=== PATIENT | female | born 1995 | race Caucasian/White ===

== ENCOUNTER 2016-06-01 19:40 | Observation (INO) | payer OTHER ==
[~2016-06-01] VITALS: Ht 152.4 cm; Wt 58.7 kg
[~2016-06-01 19:40] MED LIST: ACET500C5 PO; ONDA4TAB8 PO; OSLT75C PO; OXYM15SP34 NASAL; UDROBDM PO
[2016-06-01 19:44] VITALS: Ht 152.4 cm; Wt 58.7 kg
[2016-06-01] MEDS ORDERED: SOD CHLORIDE 0.9% 500 ML IV STA (21:57)
[2016-06-01 22:11] LABS: ADD SCAN DIFF NO
[2016-06-01 22:12] LABS: BASOPHILS % 0.2 % (0.0-2.0); EOSINOPHILS # 0.1 10^3/ul (0.0-0.5); EOSINOPHILS % 1.1 % (0.0-7.0); HEMATOCRIT 43.5 % (37.0-47.0); HEMOGLOBIN 14.7 g/dl (12.0-16.0); LYMPHOCYTES # 3.2 10^3/ul (0.8-2.9); LYMPHOCYTES % 32.7 % (15.0-51.0); MEAN CORPUSCULAR HEMOGLOBIN 28.3 pg (29.0-33.0); MEAN CORPUSCULAR HGB CONC 33.8 g/dl (32.0-37.0); MEAN CORPUSCULAR VOLUME 83.7 fl (82.0-101.0); MEAN PLATELET VOLUME 9.9 fl (7.4-10.4); MONOCYTE # 0.6 10^3/ul (0.3-0.9); MONOCYTES % 5.8 % (0.0-11.0); NEUTROPHIL # 5.9 10^3/ul (1.6-7.5); PLATELET COUNT 333 10^3/UL (140-415); RED CELL DISTRIBUTION WIDTH 13.2 % (11.5-14.5); WHITE BLOOD COUNT 9.9 10^3/ul (4.8-10.8)
[2016-06-01 22:23] LABS: INR 0.96; PROTIME 12.8 Sec (12.2-14.2)
[2016-06-01 22:24] LABS: PARTIAL THROMBOPLASTIN TIME 34.4 Sec (25.0-35.0)
[2016-06-01 22:26] LABS: ALANINE AMINOTRANSFERASE 31 IU/L (13-69); ALBUMIN 4.7 g/dl (3.3-4.9); ALBUMIN/GLOBULIN RATIO 1.46; ALKALINE PHOSPHATASE 96 IU/L (42-121); ANION GAP 14 (8-16); ASPARTATE AMINO TRANSFERASE 25 IU/L (15-46); BILIRUBIN,INDIRECT 1.1 mg/dl (0-1.1); BILIRUBIN,TOTAL 1.1 mg/dl (0.2-1.3); BLOOD UREA NITROGEN 21 mg/dl (7-20); CALCIUM 9.4 mg/dl (8.4-10.2); CARBON DIOXIDE 25 mmol/L (21-31); CHLORIDE 103 mmol/L (97-110); CREATININE 0.65 mg/dl (0.44-1.00); GLUCOSE 84 mg/dl (70-220); POTASSIUM 3.7 mmol/L (3.5-5.1); SODIUM 138 mmol/L (135-144); TOTAL PROTEIN 7.9 g/dl (6.1-8.1)
[2016-06-01 22:34] LABS: URINE BLOOD (Dip) POC Negative (NEGATIVE)
[2016-06-01 22:38] LABS: B-TYPE NATRIURETIC PEPTIDE 18 PG/ML (0-125)
[2016-06-01 22:40] LABS: TROPONIN-I < 0.012 ng/ml (0.00-0.12)
[2016-06-01 22:45] LABS: ADD UMIC YES; URINE BILIRUBIN (Dip) NEGATIVE (NEGATIVE); URINE BLOOD (Dip) NEGATIVE (NEGATIVE); URINE COLOR LT. YELLOW (YELLOW); URINE GLUCOSE (Dip) NEGATIVE (NEGATIVE); URINE KETONES (Dip) NEGATIVE (NEGATIVE); URINE LEUKOCYTE ESTERASE (Dip) 1+ (NEGATIVE); URINE NITRITE (Dip) NEGATIVE (NEGATIVE); URINE TOTAL PROTEIN (Dip) NEGATIVE (NEGATIVE); URINE UROBILINOGEN (Dip) 0.2 E.U./dL (0.1-1.0)
--- NOTE | 2016-06-01 22:46 | RADRPT ---
PROCEDURE: XR Chest. CLINICAL INDICATION: Chest Pain. TECHNIQUE: Single frontal view of the chest was obtained. COMPARISON: 01/08/2015 FINDINGS: The cardiomediastinal silhouette is normal size. Pulmonary vasculature is within normal limits. Th e lungs are clear. No signs of pleural fluid or pneumothorax are seen. The osseous structures and soft tissues are unre markable. IMPRESSION: No evidence for active cardiopulmonary disease. RPTAT: HBST .Khoi Downing MD, MD Date Time Electronically viewed and signed by .Khoi Downign MD, on 06/01/2016 22:45 .T/
[2016-06-01 23:09] LABS: BACTERIA,URINE FEW; SQUAMOUS EPITHELIAL CELL,UR MODERATE; URINE RBCS NONE SEEN /HPF (0)
--- NOTE | 2016-06-01 23:22 | RADRPT ---
PROCEDURE: CT brain without contrast CLINICAL INDICATION: Dizziness TECHNIQUE: A CT of the brain was performed utilizing axial sections from the skull base through th e vertex without contrast. Sagittal and coronal images were also reformatted. The exam CDTIvol = 4 5.01 mGy and DLP = 720.23 mGy-cm. COMPARISON: None available FINDINGS: No acute intracranial hemorrhage is identified. There is no mass effect or midline shift. No extra -axial fluid collection is seen. The ventricles and sulci are within normal limits for size and con figuration. The density of the brain is within normal limits. Leon-white differentiation is preser cierra. The osseous structures are unremarkable. The mastoid air cells and visualized paranasal sinuses are clear. RPTAT:HJJR IMPRESSION: Unremarkable noncontrast CT of the brain. Physician Anais Date Time Electronically viewed and signed by Physician Anais on 06/01/2016 23:22 /
[2016-06-02] MEDS ORDERED: NACL 0.9% 3 ML SYG IV SCH (00:30)
[2016-06-02] MEDS ORDERED: DOCUSATE SODIUM 100 MG CAP PO PRN (00:30)
[2016-06-02 01:41] LABS: D-DIMER < 220.00 ng/ml (<460)
[2016-06-02] MEDS: FAMOTIDINE 20 MG TAB PO SCH ×3 (03:24→20:23)
[2016-06-02] MEDS ORDERED: MECLIZINE 12.5 MG TAB PO ONE (04:00)
[2016-06-02] MEDS ORDERED: POTASSIUM CHLORIDE (SR) 20 MEQ TAB PO STA (10:10)
[2016-06-02] MEDS ORDERED: MECLIZINE 25 MG TAB PO PRN (11:00)
[2016-06-02] MEDS ORDERED: SOD CHLORIDE 0.9% 500 ML IV ONE (11:00)
[2016-06-02] MEDS ORDERED: ONDANSETRON 4 MG INJ IV PRN (11:00)
[2016-06-02 11:16] LABS: CALCIUM 8.6 mg/dl (8.4-10.2); CREATINE KINASE 32 IU/L (23-200); CREATININE 0.65 mg/dl (0.44-1.00); MAGNESIUM 1.9 mg/dl (1.7-2.5); PHOSPHORUS 3.3 mg/dl (2.5-4.9); POTASSIUM 3.8 mmol/L (3.5-5.1)
[2016-06-02 11:37] LABS: CK-MB < 0.22 ng/ml (0.0-2.4); TROPONIN-I < 0.012 ng/ml (0.00-0.12)
[2016-06-02] MEDS: SOD CHLORIDE 0.9% 1,000 ML IV SCH ×3 (11:47→22:09)
--- NOTE | 2016-06-02 11:55 | HP ---
DATE OF ADMISSION: 06/01/2016 CHIEF COMPLAINT ON ADMISSION: Dizziness and syncope. 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 Her last MRI was a year ago, however, also history of "heart defect," she is not sure what type, but she was als o followed by cardiology as an outpatient, who presented to the emergency department with complaint of 4 episodes of syncope 2 days ago. The patient reports that she did have occasional dizziness dur ing her childhood which were usually monitored or worked up at the [facility] in [place] . However, these episodes she has been having for the past week. She has been having dizziness ove r the past week. No nausea or vomiting. She does have vertiginous sensation. Her gait has been ok ay; however, she feels extremely weak all 4 extremities. 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 She prese nted yesterday in the ER after having 4 episodes of syncope according to the patient the day before. She just feels dizzy. She denies any palpitations, but does have shortness of breath ongoing at [facility]. She had a D-dimer which was negative in the emergency department. Cardiac enz ymes are negative. EKG: Sinus rhythm so far. A 2D echocardiogram with bubble study is pending wit h a cardiology evaluation. I will also obtain MRI and MRA of the brain. With a negative D-dimer, I will discuss if we really need to do a CT angiogram; that would be a last resort due to the rest of the symptoms if we do not have any plausible etiology. The patient is agreeable with the plan. Sh e not orthostatic based on vital signs, but she does feel dizzy even when lying down. She remains h emodynamically stable. ALLERGIES: MULTIPLE ALLERGIES INCLUDING 1. METRONIDAZOLE. 2. CIPROFLOXACIN. 3. KETOROLAC. PAST MEDICAL HISTORY: 1. History of brain cyst. She said that she was told it is a "friendly cyst." 2. History of heart defect, but she does not know exactly which type. She reports that her mom александр d her she was born with it and she had been seeing cardiology as an outpatient during her childhood. PAST SURGICAL HISTORY: Status post appendectomy 3 years ago. GYNECOLOGIC HISTORY: She had 1 last year with multiple admissions due to vaginal bleeding throughout the . It seems to have been a difficult one, but the baby was born healthy and she has not had any complications since then. SOCIAL HISTORY: The patient lives with family. She denies any alcohol, tobacco or drug use. No m arijuana use either. OUTPATIENT MEDICATIONS: None. PHYSICAL EXAMINATION: VITAL SIGNS: Temperature is 98.7, heart rate of 73, sinus rhythm, respiratory rate of 16, blood pre ssure 121/88. Her orthostatics again were negative. GENERAL: She is alert and oriented x4. She is in no acute distress, but seems lethargic even speak ing. She is so short of breath and when her saturations are checked, she is around 88%. HEENT: Pupils are equally round and reactive to light. Extraocular muscles are intact. Anicteric sclerae. NECK: No JVD, no thyromegaly noted. HEART: Regular rate and rhythm. No murmur, rubs, or gallops. LUNGS: Clear to auscultation bilaterally. EXTREMITIES: No edema, clubbing or cyanosis. NEUROLOGIC: The patient does have generalized weakness, 4+/5 throughout. Cranial nerves are intact . Sensation is intact. Gait seems to be intact. LABORATORY DATA: White blood cell count 9.9, hemoglobin 14.7, hematocrit 43.5, platelet count of 33 3. Normal differential on the white blood cell count. Chemistry: Sodium of 138, potassium 3.7, ch loride 103, bicarbonate 25, BUN 21, creatinine 0.65. Hemoglobin A1c 5.0. Glucose of 84, calcium 9 .4. Total bilirubin 1.1, AST 25, ALT 31. Troponin less than 0.012. Alkaline phosphatase of 96, to lang protein 7.9, albumin of 4.7. INR 0.96, PTT 34.4, PT 12.8. D-dimer is less than 220. Urinalysi s is grossly mostly negative. Urine tox screen is pending. A 2D echocardiogram pending. TSH, free T4 pending. Second cardiac enzymes still pending. RADIOLOGICAL DATA: 1. Chest x-ray shows no cardiomegaly, and pulmonary vasculature within normal limits. 2. CAT scan of the brain does not show any acute findings at all or any chronic findings. ASSESSMENT AND PLAN: This is a 21-year-old female with: 1. Dizziness and multiple episodes of syncope with reported "brain cyst" and also reported "heart d efect." We do not have any documentation per se. Therefore, workup is in progress. Echocardiogram with bubble study is ordered. Cardiac enzymes are being evaluated and cardiology consult is placed with Dr. Johnson at this point. We will also obtain an MRI and MRA of the brain based on her histor y and also carotid Dopplers. She is currently stable on telemetry. Additional workup including TSH , free T4 are also pending. 2. Prophylaxis: Pepcid for gastrointestinal prophylaxis. Sequential compression devices to lower extremities for deep venous thrombosis prophylaxis. DISPOSITION Cardiac and neurological workup pending. We will discuss further plan of care with edilia ronquillo. Dictated By: IJEOMA NUNN/CATHERINE Conf#: [id number] DID#: [id number]
[2016-06-02 13:33] LABS: BARBITURATES NEGATIVE (NEGATIVE); BENZODIAZEPINES NEGATIVE (NEGATIVE); CANNABINOIDS NEGATIVE (NEGATIVE); COCAINE NEGATIVE (NEGATIVE); OPIATES NEGATIVE (NEGATIVE)
[2016-06-02 17:30] VITALS: TEMP 98.8
[2016-06-02 18:25] VITALS: BP 110/70; PULSE 71; RESP 18
[2016-06-02 20:00] VITALS: BP_SYST 107; BP_SYST 108; BP_SYST 112; BP_DIAS 73; BP_DIAS 76; RESP 20
[2016-06-02] MEDS: ACETAMINOPHEN 325 MG TAB PO PRN (20:23)
[2016-06-02 21:09] VITALS: PULSE 84
[2016-06-03] VITALS (13 sets, daily range): BP systolic 100–116; BP diastolic 56–75; PULSE 63–86; RESP 18–20
--- NOTE | 2016-06-03 08:12 | RADRPT ---
Echocardiogram Report Patient Name: LYRIC CARTER Gender: Female Date: 1995 Study Date: 02-Jun-2016 Team Foreman: Francia Denis RDCS Location: 2 Ref. Physician: EVELIN REYES Quality: Good Procedures: Transthoracic echocardiogram with complete 2D, M-Mode, and doppler examination. Indications: Syncope. 2D/M Mode Doppler Measurement Value Normal Ranges Measurement Value Normal Ranges LVIDd 2D 4.2 3.5 - 5.6 cm AV Peak Nathanael 1.5 m/sec LVIDs 2D 2.4 2.1 - 4.1 cm AV Peak PG 9.0 mmHg FS 2D 42.9 % LVOT Peak Nathanael 1.2 m/sec LVPWd 2D 0.7 0.6 - 1.1 cm LVOT Peak PG 6.0 mmHg IVSd 2D 0.6 0.6 - 1.1 cm MV E Peak Nathanael 1.2 m/sec IVS/LVPW 2D 0.9 MV A Peak Nathanael 0.6 m/sec AoR Diam 2D 2.1 2.0 - 3.7 cm MV E/A 2.0 LA/Ao 2D 1 0 - 1 MV Decel Time 148 msec EDV 2D 74.1 cm3 MV E/A 2.0 ESV 2D 13.8 cm3 TR Peak Nathanael 2.0 m/sec LA Dimen 2D 2.6 2.3 - 4.0 cm TR Peak PG 16.0 mmHg RVSP 19.0 mmHg Findings Left Ventricle: Normal left ventricular systolic function. Normal left ventricular cavity size. Normal left ventricular wall thickness. Ejection fraction is visually estimated at 65 %. Tissue Doppler/Mitral Doppler indices are within normal limits. Right Ventricle: Normal right ventricular size. Normal right ventricular systolic function. Left Atrium: The left atrium is normal in size. Right Atrium: The right atrium is normal in size. Atrial Septum: Bubble study was performed with and with out valsalva indicating no evidence of intra atrial shunt. Mitral Valve: Mitral valve leaflets appear mildly thickened. Mild mitral annular calcification. Trace mitral regurgitation. Aortic Valve: Normal appearance of the aortic valve. No significant aortic stenosis or insufficiency. Tricuspid Valve: Normal appearance and function of the tricuspid valve with trace physiologic regurgitation. Normal right ventricular systolic pressure. Estimated peak PA systolic pressure 19 mmHg. Pulmonic Valve: Normal pulmonic valve appearance. There is trace pulmonic regurgitation. Pericardium: Normal pericardium with no significant pericardial effusion. Aorta: Normal aortic root. IVC: Normal size and normal respiratory collapse consistent with normal right atrial pressure. Conclusions 1.Normal left ventricular systolic function. Normal left ventricular cavity size. Normal left ventricular wall thickness. Ejection fraction is visually estimated at 65 %. Tissue Doppler/Mitral Doppler indices are within normal limits. 2.Normal right ventricular size. Normal right ventricular systolic function. 3.The left atrium is normal in size. 4.The right atrium is normal in size. 5.Normal appearance and function of the tricuspid valve with trace physiologic regurgitation. Normal right ventricular systolic pressure. Estimated peak PA systolic pressure 19 mmHg. 6.Normal pericardium with no significant pericardial effusion. Electronically Signed By: Faby Johnson 03-Jun-2016 08:11:32 -0700 Patient Name: LYRIC CARTER Study Date: 02-Jun-2016 [id number]
[2016-06-03] MEDS: FAMOTIDINE 20 MG TAB PO SCH ×2 (08:17→20:35)
[2016-06-03] MEDS: SOD CHLORIDE 0.9% 1,000 ML IV SCH ×3 (08:17→21:43)
--- NOTE | 2016-06-03 12:13 | RADRPT ---
PROCEDURE: MRA Neck without contrast. CLINICAL INDICATION: Syncope TECHNIQUE: An MRA of the major cervical arteries was performed on a 3.0 T scanner utilizing axial 2-D [id number] sequence, and 3-D [id number] sequence through the carotid bifurcations. Lianne rce and MIP images were reviewed. COMPARISON: None available FINDINGS: The visualized bilateral common carotid arteries are patent. The bilateral carotid bulbs - bifurcat ions are patent and the bilateral internal carotid arteries are patent. No stenosis by NASCET crite sheldon is identified. The visualized bilateral vertebral arteries are patent. No dissection is identi fied. IMPRESSION: Unremarkable MRA of the neck. RPTAT: GG .Richard Martines MD, Date Time Electronically viewed and signed by .Richard Martines MD, on 06/03/2016 12:13 .O/
--- NOTE | 2016-06-03 12:17 | PN ---
Date/Time of Note Date/Time of Note DATE: 06/03/16 TIME: 11:57 Assessment/Plan VTE Prophylaxis VTE Prophylaxis Intervention: SCD's Lines/Catheters IV Catheter Type (from Nrs): Peripheral IV Urinary Cath still in place: No Assessment/Plan Assessment/Plan 21-year-old female with: 1. Dizziness and multiple episodes of syncope with reported "brain cyst" and also reported "heart defect." Patient complaining of vertigo improved with Meclizine Appreciate Dr Johnson's recommendations, no further inpatient cardiac work up needed, checking orthostatics today MRI/MRA bran and MRA neck done and results pending Patient still complaining of SOB too, CXR and D dimer wnl .. May need CTA to complete w/u after all Echocardiogram wnl On telemetry. TSH, free T4 wnl. Prophylaxis: Pepcid for gastrointestinal prophylaxis. Sequential compression devices to lower extremities for deep venous thrombosis prophylaxis. DISPOSITION: Inpatient cardiac work up completed and no acute findings Neurological workup with MRI/MRA head and MRA neck pending. CTA chest as needed Subjective 24 Hr Interval Summary Free Text/Dictation Patient still dizzy and vertiginous episodes overnight better with meclizine Orthostatics pending and MRIs results pending Exam/Review of Systems Vital Signs Vitals Vital Signs Date Time Temp Pulse Resp B/P Pulse Ox O2 Delivery O2 Flow Rate FiO2 06/03/16 08:17 64 06/03/16 08:00 Nasal Cannula 2.0 06/03/16 07:01 97.9 18 100/64 100 Intake and Output 06/02/16 06/02/16 06/03/16 15:00 23:00 07:00 Intake Total 486 ml 1550 ml Balance 486 ml 1550 ml Exam Constitutional: alert, oriented, other (dizzy ), well developed Respiratory: clear to auscultation, normal air movement Cardiovascular: nl pulses, regular rate and rhythm Gastrointestinal: non-tender, soft Musculoskeletal: nl extremities to inspection Extremities: normal pulses, other (no edema, clubbing or cyanosis ) Neurological: HEAD ROSE GROWER II-XII intact, nl mental status, nl speech, other ( generalized weakness ) Results Result Diagram: 06/01/16 2201 06/02/16 1050 Results 24 hrs Laboratory Tests Test 06/03/16 05:00 06/03/16 06:35 Troponin I < 0.012 Thyroid Stimulating Hormone (TSH) 1.220 Medications Medications Current Medications Acetaminophen (Tylenol Tab) 650 mg Q6H PRN PO PAIN LEVEL 1-3 OR FEVER Last administered on 06/02/16 20:23; Admin Dose 650 MG; Start 06/02/16 at 00:30 Docusate Sodium (Colace) 100 mg Q12H PRN PO CONSTIPATION; Start 06/02/16 at 00: 30 Famotidine (Pepcid) 20 mg Q12 PO Last administered on 06/03/16 08:17; Admin Dose 20 MG; Start 06/02/16 at 00:30 Ondansetron HCl (Zofran Inj) 4 mg Q6H PRN IV NAUSEA AND/OR VOMITING; Start 01/08 at 11:00 Meclizine HCl 25 mg 25 mg TID PRN PO VERTIGO, DIZZINESS Last administered on 20:23; Admin Dose 25 MG; Start 06/02/16 at 11:00 Sodium Chloride (NS) 1,000 ml @ 100 mls/hr Q10H IV Last administered on 08:17; Admin Dose 100 MLS/HR; Start 06/02/16 at 11:00 Procedures Procedures Echocardiogram Report Patient Name: LYRIC CARTER Gender: Female Date: 1995 Study Date: 02-Jun-2016 Head Custodian: Francia Denis RDCS Location: [facility] Ref. Physician: EVELIN REYES Quality: Good Procedures: Transthoracic echocardiogram with complete 2D, M-Mode, and doppler examination. Indications: Syncope. 2D/M Mode Doppler Measurement Value Normal Ranges Measurement Value Normal Ranges LVIDd 2D 4.2 3.5 - 5.6 cm AV Peak Nathanael 1.5 m/sec LVIDs 2D 2.4 2.1 - 4.1 cm AV Peak PG 9.0 mmHg FS 2D 42.9 % LVOT Peak Nathanael 1.2 m/sec LVPWd 2D 0.7 0.6 - 1.1 cm LVOT Peak PG 6.0 mmHg IVSd 2D 0.6 0.6 - 1.1 cm MV E Peak Nathanael 1.2 m/sec IVS/LVPW 2D 0.9 MV A Peak Nathanael 0.6 m/sec AoR Diam 2D 2.1 2.0 - 3.7 cm MV E/A 2.0 LA/Ao 2D 1 0 - 1 MV Decel Time 148 msec EDV 2D 74.1 cm3 MV E/A 2.0 ESV 2D 13.8 cm3 TR Peak Nathanael 2.0 m/sec LA Dimen 2D 2.6 2.3 - 4.0 cm TR Peak PG 16.0 mmHg RVSP 19.0 mmHg Findings Left Ventricle: Normal left ventricular systolic function. Normal left ventricular cavity size. Normal left ventricular wall thickness. Ejection fraction is visually estimated at 65 %. Tissue Doppler/Mitral Doppler indices are within normal limits. Right Ventricle: Normal right ventricular size. Normal right ventricular systolic function. Left Atrium: The left atrium is normal in size. Right Atrium: The right atrium is normal in size. Atrial Septum: Bubble study was performed with and with out valsalva indicating no evidence of intra atrial shunt. Mitral Valve: Mitral valve leaflets appear mildly thickened. Mild mitral annular calcification. Trace mitral regurgitation. Aortic Valve: Normal appearance of the aortic valve. No significant aortic stenosis or insufficiency. Tricuspid Valve: Normal appearance and function of the tricuspid valve with trace physiologic regurgitation. Normal right ventricular systolic pressure. Estimated peak PA systolic pressure 19 mmHg. Pulmonic Valve: Normal pulmonic valve appearance. There is trace pulmonic regurgitation. Pericardium: Normal pericardium with no significant pericardial effusion. Aorta: Normal aortic root. IVC: Normal size and normal respiratory collapse consistent with normal right atrial pressure. Conclusions 1. Normal left ventricular systolic function. Normal left ventricular cavity size. Normal left ventricular wall thickness. Ejection fraction is visually estimated at 65 %. Tissue Doppler/Mitral Doppler indices are within normal limits. 2. Normal right ventricular size. Normal right ventricular systolic function. 3. The left atrium is normal in size. 4. The right atrium is normal in size. 5. Normal appearance and function of the tricuspid valve with trace physiologic regurgitation. Normal right ventricular systolic pressure. Estimated peak PA systolic pressure 19 mmHg. 6. Normal pericardium with no significant pericardial effusion. Electronically Signed By: Faby Johnson 03-Jun-2016 08:11:32 -0700 IJEOMA REYES Jun 03, 2016 12:13
[2016-06-03] MEDS: MECLIZINE 25 MG TAB PO SCH ×2 (12:32→20:35)
--- NOTE | 2016-06-03 12:36 | RADRPT ---
PROCEDURE: MRA brain without contrast CLINICAL INDICATION: Syncope TECHNIQUE: 3-D [id number] intracranial MRA was performed on a 3.0T scanner. Rotational MIP cielo ges were reformatted. The source images were also reviewed. COMPARISON: None available FINDINGS: The bilateral internal carotid arteries, and the bilateral middle and anterior cerebral arteries are patent. The bilateral vertebral arteries, basilar artery, as well as the bilateral posterior cereb ral arteries are patent. No aneurysm or vascular malformation is identified. IMPRESSION: Unremarkable MRA of the brain. RPTAT: GG .Richard Martines MD, MD Date Time Electronically viewed and signed by .Richard Martines MD, on 06/03/2016 12:36 .O/
--- NOTE | 2016-06-03 12:40 | RADRPT ---
PROCEDURE: MRI Brain without contrast. CLINICAL INDICATION: Syncope TECHNIQUE: Multiplanar MRI of the brain without contrast was performed on a 3.0 T scanner with the following sequences obtained: T1-weighted, T2-weighted/FLAIR, diffusion weighted (with ADC map), GR E. COMPARISON: CT brain 06/01/2016 FINDINGS: No acute/recent ischemic infarction or intracranial hemorrhage / blood degradation products are iden tified. No extra-axial fluid collection is seen. There is no mass effect. No midline shift is identified. The ventricles and sulci are relatively mildly enlarged compatible with volume loss. The signal intensity is within normal limits throughout the cerebrum, brainstem, and cerebellum. Flow voids are identified in the proximal intracranial arteries and dural sinuses suggesting patency . The mastoid air cells and paranasal sinuses are grossly clear. IMPRESSION: 1. No evidence of acute intracranial pathology. 2. Mild volume loss. RPTAT: GG .Richard Martines MD, MD Date Time Electronically viewed and signed by .Richard Martines MD, MD on 06/03/2016 12:40 .O/
--- NOTE | 2016-06-03 14:15 | CONS ---
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 The patient reports that she did have occasional dizziness during her childhood which were usually monitored or worked up at the [facility] in [place]. However, these episodes she has been having for the past week. She has been having dizziness over the past week. No nausea or vomiting. She does have vertiginous sensation. Her gait has been okay; however, she feels extremely weak all 4 extremities. 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 She presented yesterday in the ER after having 4 episodes of syncope according to the patient the day before. She just feels dizzy. She denies any palpitations, but does have shortness of breath ongoing at least sensation life. She had a D-dimer which was negative in the emergency department. Cardiac enzymes are negative. EKG: Sinus rhythm so far. A 2D echocardiogram with bubble study is pending with a cardiology evaluation. I will also obtain MRI and MRA of the brain. With a negative D-dimer, I will discuss if we really need to do a CT angiogram; that would be a last resort due to the rest of the symptoms if we do not have any plausible etiology. The patient is agreeable with the plan. She not orthostatic based on vital signs, but she does feel dizzy even when lying down. She remains hemodynamically stable. She has had no cardiac sytmoms but for the past week she has had dizziness and sob with and without acitivyt - while working/standing, she had syncope with no seqiure activity and no recurrence Past Surgical History Past Surgical Hx: no surgical history Social History Smoking Status: Never smoker Exam/Review of Systems Vital Signs Vitals Vital Signs Date Time Temp Pulse Resp B/P Pulse Ox O2 Delivery O2 Flow Rate FiO2 06/03/16 12:12 86 06/03/16 12:06 98.5 18 116/72 100 06/03/16 08:00 Nasal Cannula 2.0 Intake and Output 06/02/16 06/02/16 06/03/16 15:00 23:00 07:00 Intake Total 486 ml 1550 ml Balance 486 ml 1550 ml Results Result Diagram: 06/01/16 2201 06/02/16 1050 Results 24 hrs Laboratory Tests Test 06/03/16 05:00 06/03/16 06:35 Troponin I < 0.012 Thyroid Stimulating Hormone (TSH) 1.220 Medications Medications Current Medications Acetaminophen (Tylenol Tab) 650 mg Q6H PRN PO PAIN LEVEL 1-3 OR FEVER Last administered on 06/02/16 20:23; Admin Dose 650 MG; Start 06/02/16 at 00:30 Docusate Sodium (Colace) 100 mg Q12H PRN PO CONSTIPATION; Start 06/02/16 at 00: 30 Famotidine (Pepcid) 20 mg Q12 PO Last administered on 06/03/16 08:17; Admin Dose 20 MG; Start 06/02/16 at 00:30 Ondansetron HCl 4 mg 4 mg Q6H PRN IV NAUSEA AND/OR VOMITING; Start 06/02/16 at 11:00 Sodium Chloride (NS) 1,000 ml @ 100 mls/hr Q10H IV Last administered on 08:17; Admin Dose 100 MLS/HR; Start 06/02/16 at 11:00 Meclizine HCl (Antivert) 25 mg TID PO Last administered on 06/03/16 12:32; Admin Dose 25 MG; Start 06/03/16 at 13:00 MARTHA DILL MD Jun 03, 2016 14:15
[2016-06-03] MEDS: ACETAMINOPHEN 325 MG TAB PO PRN (15:03)
[2016-06-03] MEDS ORDERED: IODIXANOL LOCM 100 ML BTL ONE (16:18)
[2016-06-03] MEDS ORDERED: SOD CHLORIDE 0.9% 100 ML ONE (16:18)
[2016-06-03] MEDS ORDERED: IOHEXOL 100 ML ONE (16:42)
--- NOTE | 2016-06-03 17:01 | RADRPT ---
PROCEDURE: CT ANGIOGRAPHY CHEST CLINICAL INDICATION: Shortness of breath TECHNIQUE: Volumetrically acquired images of the thorax obtained with intravenous contrast were re formatted in the axial, coronal, and sagittal planes. CTDI = 6.8 mGy; DLP = 247 mGy-cm. 100 cc of O mnipaque 350 was administered. 3D MIP multiplanar reconstructions were performed and evaluated on t iFormulary workstation. One or more of the following dose reduction technique were used: Automatic exposure control, adjustment of the mA and/or kV according to patient size, and use of iterative reconstructi on technique. COMPARISON: Chest x-ray from 06/01/2016. FINDINGS: LOWER NECK AND CHEST WALL: Normal. AIRWAYS: The trachea and large airways are normal. Mild bronchial wall thickening is seen. LUNGS: Clear. No suspicious nodules, masses, or consolidation. PLEURA: Unremarkable. No pleural thickening or effusions. LYMPH NODES: No significant axillary, hilar, or mediastinal lymphadenopathy by CT size criteria. CARDIAC: The heart size is normal. No pericardial effusion. VASCULAR: Technically adequate opacification of the pulmonary arteries; no fill defects are seen. T aorta and main pulmonary artery are normal in caliber. OSSEOUS: No suspicious osseous lesions. Limited evaluation of the upper abdomen is unremarkable. IMPRESSION: 1. No pulmonary embolism. 2. Mild bronchial wall thickening may be sequela of bronchitis, asthma, or other nonspecific airway inflammation. RPTAT:PP .Jose Art MD, Date Time Electronically viewed and signed by .Jose Art MD, MD on 06/03/2016 17:01 .Daysi/
[2016-06-04] VITALS (11 sets, daily range): BP systolic 90–118; BP diastolic 52–81; PULSE 61–96; RESP 16–18
[2016-06-04] MEDS: ACETAMINOPHEN 325 MG TAB PO PRN (00:27)
[2016-06-04 07:23] LABS: ADD SCAN DIFF NO
[2016-06-04 07:26] LABS: BASOPHILS % 0.1 % (0.0-2.0); EOSINOPHILS # 0.1 10^3/ul (0.0-0.5); EOSINOPHILS % 1.8 % (0.0-7.0); HEMATOCRIT 37.5 % (37.0-47.0); HEMOGLOBIN 12.3 g/dl (12.0-16.0); LYMPHOCYTES # 2.4 10^3/ul (0.8-2.9); MEAN CORPUSCULAR HEMOGLOBIN 27.8 pg (29.0-33.0); MEAN CORPUSCULAR HGB CONC 32.8 g/dl (32.0-37.0); MEAN CORPUSCULAR VOLUME 84.7 fl (82.0-101.0); MEAN PLATELET VOLUME 10.2 fl (7.4-10.4); MONOCYTE # 0.6 10^3/ul (0.3-0.9); MONOCYTES % 8.3 % (0.0-11.0); NEUTROPHIL # 4.4 10^3/ul (1.6-7.5); NEUTROPHILS % 57.4 % (39.0-77.0); PLATELET COUNT 256 10^3/UL (140-415); RED BLOOD COUNT 4.43 10^6/ul (4.20-5.40); RED CELL DISTRIBUTION WIDTH 13.1 % (11.5-14.5); WHITE BLOOD COUNT 7.6 10^3/ul (4.8-10.8)
[2016-06-04 07:35] LABS: POTASSIUM 3.7 mmol/L (3.5-5.1)
[2016-06-04 07:38] LABS: CREATININE 0.58 mg/dl (0.44-1.00)
[2016-06-04 07:39] LABS: CALCIUM 8.6 mg/dl (8.4-10.2)
[2016-06-04 07:56] LABS: MAGNESIUM 1.6 mg/dl (1.7-2.5); PHOSPHORUS 3.9 mg/dl (2.5-4.9)
[2016-06-04] MEDS: FAMOTIDINE 20 MG TAB PO SCH (08:18)
[2016-06-04] MEDS: MECLIZINE 25 MG TAB PO SCH (08:19)
--- NOTE | 2016-06-04 08:24 | PN ---
Date/Time of Note Date/Time of Note DATE: 06/04/16 TIME: 08:22 Assessment/Plan VTE Prophylaxis VTE Prophylaxis Intervention: SCD's Lines/Catheters IV Catheter Type (from [facility]): Peripheral IV Urinary Cath still in place: No Assessment/Plan Chief Complaint/Hosp Course This is a 21-year-old female history of "heart defect," she is not sure what type, but she was also followed by cardiology as an outpatient, who presented to the emergency department with complaint of 4 episodes of syncope 2 days ago. The patient reports that she did have occasional dizziness during her childhood which were usually monitored or worked up at the [facility] in [place]. However, these episodes she has been having for the past week. She has been having dizziness over the past week. No nausea or vomiting. She does have vertiginous sensation. Her gait has been okay; however, she feels extremely weak all 4 extremities. 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 She presented yesterday in the ER after having 4 episodes of syncope according to the patient the day before. She just feels dizzy. She denies any palpitations, but does have shortness of breath ongoing at least sensation life. She had a D-dimer which was negative in the emergency department. Cardiac enzymes are negative. EKG: Sinus rhythm so far. A 2D echocardiogram with bubble study is pending with a cardiology evaluation. I will also obtain MRI and MRA of the brain. With a negative D-dimer, I will discuss if we really need to do a CT angiogram; that would be a last resort due to the rest of the symptoms if we do not have any plausible etiology. The patient is agreeable with the plan. She not orthostatic based on vital signs, but she does feel dizzy even when lying down. She remains hemodynamically stable. 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 -Normal Echo with no strucutral heart disease -No arrythmias and normal trops -check orhtostatics - DIDN'T SEE RESULTS IN CHART TODAY, WILL CALL RN -possible outpatient event recorder if all negative -MRA/MRI - NORMAL -ct chest - NORMAL -NO FURTHER CARDIAC WORK UP > D/C PLAN OK FORM CARDIOLOGY STANDPOINT Subjective 24 Hr Interval Summary Free Text/Dictation The patient better overnight Exam/Review of Systems Vital Signs Vitals Vital Signs Date Time Temp Pulse Resp B/P Pulse Ox O2 Delivery O2 Flow Rate FiO2 06/04/16 08:09 61 06/04/16 07:50 97.4 16 92/58 99 06/04/16 07:36 Nasal Cannula 2.0 Intake and Output 06/03/16 06/03/16 06/04/16 15:00 23:00 07:00 Intake Total 1700 ml 1550 ml Balance 1700 ml 1550 ml Results Result Diagram: 06/04/16 0650 06/04/16 0650 Results 24 hrs Laboratory Tests Test 06/04/16 06:50 White Blood Count 7.6 # Red Blood Count 4.43 Hemoglobin 12.3 Hematocrit 37.5 Mean Corpuscular Volume 84.7 Mean Corpuscular Hemoglobin 27.8 L Mean Corpuscular Hemoglobin Concent 32.8 Red Cell Distribution Width 13.1 Platelet Count 256 # Mean Platelet Volume 10.2 Neutrophils % 57.4 Lymphocytes % 32.0 Monocytes % 8.3 Eosinophils % 1.8 Basophils % 0.1 Nucleated Red Blood Cells % 0.0 Neutrophils # 4.4 Lymphocytes # 2.4 Monocytes # 0.6 Eosinophils # 0.1 Basophils # 0.0 Nucleated Red Blood Cells # 0.0 Sodium Level 138 Potassium Level 3.7 Chloride Level 104 Carbon Dioxide Level 25 Anion Gap 13 Blood Urea Nitrogen 16 Creatinine 0.58 Glucose Level 88 Calcium Level 8.6 Phosphorus Level 3.9 Magnesium Level 1.6 L Medications Medications Current Medications Acetaminophen (Tylenol Tab) 650 mg Q6H PRN PO PAIN LEVEL 1-3 OR FEVER Last administered on 06/04/16 00:27; Admin Dose 650 MG; Start 06/02/16 at 00:30 Docusate Sodium (Colace) 100 mg Q12H PRN PO CONSTIPATION; Start 06/02/16 at 00: 30 Famotidine (Pepcid) 20 mg Q12 PO Last administered on 06/04/16 08:18; Admin Dose 20 MG; Start 06/02/16 at 00:30 Ondansetron HCl 4 mg 4 mg Q6H PRN IV NAUSEA AND/OR VOMITING; Start 06/02/16 at 11:00 Sodium Chloride (NS) 1,000 ml @ 100 mls/hr Q10H IV Last administered on 21:43; Admin Dose 100 MLS/HR; Start 06/02/16 at 11:00 Meclizine HCl (Antivert) 25 mg TID PO Last administered on 06/04/16 08:19; Admin Dose 25 MG; Start 06/03/16 at 13:00 MARTHA DILL MD Jun 04, 2016 08:24
[2016-06-04] MEDS ORDERED: ALBUTEROL 18 GM INHALER INH PRN (09:00)
[2016-06-04] MEDS ORDERED: MAGNESIUM SULFATE 2 GM/50 ML 50 ML IVPB ONE (09:00)
[2016-06-04] MEDS ORDERED: SALMETEROL/FLUTICASONE 100/50 INHA INH SCH (10:00)
[2016-06-04] MEDS ORDERED: MECLIZINE 25 MG TAB PO SCH (13:00)
--- NOTE | 2016-06-04 13:01 | PN ---
Date/Time of Note Date/Time of Note DATE: 06/04/16 TIME: 12:36 Assessment/Plan VTE Prophylaxis VTE Prophylaxis Intervention: SCD's Lines/Catheters IV Catheter Type (from Nrs): Peripheral IV Urinary Cath still in place: No Assessment/Plan Assessment/Plan 21-year-old female with: 1. 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 CTA wnl, except for reactive airway, ? Asthma, started on Advair and Ventolin prn PT eval, FWW, ENT referral outpatient D/c home today. Prophylaxis: Pepcid for gastrointestinal prophylaxis. Sequential compression devices to lower extremities for deep venous thrombosis prophylaxis. DISPOSITION: Inpatient cardiac work up completed and no acute findings. Neurological workup wnl and CTA negative for VTE. D/c plan home today with outpatient ENT referral. Subjective 24 Hr Interval Summary Free Text/Dictation Patient doing the same today still with ongoing vertigo, all cardiac and Neurologic work up negative so far PT eval and FWW for d/c home with Meclizine low dose and ENT referral Exam/Review of Systems Vital Signs Vitals Vital Signs Date Time Temp Pulse Resp B/P Pulse Ox O2 Delivery O2 Flow Rate FiO2 06/04/16 12:11 96 06/04/16 12:03 97.2 18 118/71 98 06/04/16 07:36 Nasal Cannula 2.0 Intake and Output 06/03/16 06/03/16 06/04/16 15:00 23:00 07:00 Intake Total 1700 ml 1550 ml Balance 1700 ml 1550 ml Exam Constitutional: alert, oriented, other (ongoinf ), well developed Respiratory: clear to auscultation, normal air movement Cardiovascular: nl pulses, regular rate and rhythm Gastrointestinal: non-tender, soft Musculoskeletal: nl extremities to inspection Extremities: normal pulses, other (no edema, clubbing or cyanosis ) Neurological: RIVETER PNEUMATIC II-XII intact, nl mental status, nl speech, nl strength, other (benign positional vertigo ) Results Result Diagram: 06/04/16 0650 06/04/16 0650 Results 24 hrs Laboratory Tests Test 06/04/16 06:50 White Blood Count 7.6 # Red Blood Count 4.43 Hemoglobin 12.3 Hematocrit 37.5 Mean Corpuscular Volume 84.7 Mean Corpuscular Hemoglobin 27.8 L Mean Corpuscular Hemoglobin Concent 32.8 Red Cell Distribution Width 13.1 Platelet Count 256 # Mean Platelet Volume 10.2 Neutrophils % 57.4 Lymphocytes % 32.0 Monocytes % 8.3 Eosinophils % 1.8 Basophils % 0.1 Nucleated Red Blood Cells % 0.0 Neutrophils # 4.4 Lymphocytes # 2.4 Monocytes # 0.6 Eosinophils # 0.1 Basophils # 0.0 Nucleated Red Blood Cells # 0.0 Sodium Level 138 Potassium Level 3.7 Chloride Level 104 Carbon Dioxide Level 25 Anion Gap 13 Blood Urea Nitrogen 16 Creatinine 0.58 Glucose Level 88 Calcium Level 8.6 Phosphorus Level 3.9 Magnesium Level 1.6 L Medications Medications Current Medications Acetaminophen (Tylenol Tab) 650 mg Q6H PRN PO PAIN LEVEL 1-3 OR FEVER Last administered on 06/04/16 00:27; Admin Dose 650 MG; Start 06/02/16 at 00:30 Docusate Sodium (Colace) 100 mg Q12H PRN PO CONSTIPATION; Start 06/02/16 at 00: 30 Famotidine (Pepcid) 20 mg Q12 PO Last administered on 06/04/16 08:18; Admin Dose 20 MG; Start 06/02/16 at 00:30 Ondansetron HCl (Zofran Inj) 4 mg Q6H PRN IV NAUSEA AND/OR VOMITING; Start 01/08 at 11:00 Salmeterol Xinafoate/ Fluticasone (Advair 100/50 Diskus) 1 inh BID INH Last administered on 06/04/16 11:00; Admin Dose 1 INH; Start 06/04/16 at 10:00 Meclizine HCl (Antivert) 12.5 mg TID PO ; Start 06/04/16 at 13:00 IJEOMA REYES Jun 04, 2016 12:53
--- NOTE | 2016-06-04 13:04 | PDOCDIS ---
Discharge Instructions CONDITION Patient Condition: Stable HOME CARE INSTRUCTIONS: Special Diet: REGULAR ACTIVITY: Activity Restrictions: Slowly Increase Activity FOLLOW UP/APPOINTMENTS Appointments Follow up with PCP within 1 to 2 weeks Follow up with Dr Johnson as outpatient for event monitoring placement as needed Referral to ENT outpatient through [facility] for peripheral Vertigo SCHOOL/WORK RELEASE May return to School/Work on: June 22, 2016 IJEOMA REYES Jun 04, 2016 13:04
[2016-06-04] MEDS ORDERED: ADV10050 INH (13:09)
[2016-06-04] MEDS ORDERED: ALBU18HF INH (13:09)
[2016-06-04] MEDS ORDERED: MECL-77 PO (13:09)
--- NOTE | 2016-06-16 00:14 | ERA ---
ER Documentation Chief Complaint Date/Time DATE: 06/16/16 TIME: 00:13 Chief Complaint SOB UPON EXCERTION X1 WEEK. PASSED OUT 2 DAYS AGO. NO FOLLOW UP W/ DR PATTON This is a 21-year-old female sent for syncopal episodes over the past week. She is very unsteady on her feet. No chest pain. No nausea no vomiting fevers or chills. Does complain of some on and off shortness of breath. No other current complaints. 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 Also history of "brain cyst" which is seen she is unable to run anymore relevant detail upon ROS All systems reviewed and are negative except as per history of present illness. Medications Home Meds Active Scripts Meclizine Hcl* (Meclizine Hcl*) 25 Mg Tablet, 12.5 MG PO TID for 30 Days, TAB 1/2 tab Prov:IJEOMA REYES 06/04/16 Salmeterol Xinaf-Fluticasone* (Advair*) 100/50 Diskus Inhaler, 1 INH INH BID, # 1 3 Refills Prov:IJEOMA REYES 06/04/16 Albuterol Sulfate* (Ventolin HFA*) 18 Gm Hfa.aer.ad, 2 PUFF INH Q6HWA RESP THERAPY Y for SHORTNESS OF BREATH, #1 3 Refills Prov:IJEOMA REYES 06/04/16 Allergies Allergies: Coded Allergies: Metronidazole HCl (Verified Allergy, Unknown, HIGH BP, DIARRHEA, VOMITTING , PAIN, 06/01/16) ciprofloxacin (Verified Allergy, Unknown, HIGH BP, DIARRHEA, VOMITTING, PAIN, 06/01/16) ciprofloxacin HCl (Verified Allergy, Unknown, HIGH BP, DIARRHEA, VOMITTING , PAIN, 06/01/16) ketorolac (Verified Allergy, Unknown, SOB, 06/01/16) metronidazole (Verified Allergy, Unknown, HIGH BP, DIARRHEA, VOMITTING, PAIN, 04/15/15) PMhx/Soc History of Surgery: No Anesthesia Reaction: No Hx Neurological Disorder: No Hx Respiratory Disorders: No Hx Cardiac Disorders: Yes (HX OF HEART DEFECT PER PATIENT ) Hx Psychiatric Problems: No Hx Miscellaneous Medical Probl: Yes (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 ) Hx Alcohol Use: No Hx Substance Use: No Hx Tobacco Use: No Smoking Status: Never smoker Physical Exam Physical Exam Const: [] Head: Atraumatic Eyes: Normal Conjunctiva ENT: Normal External Ears, Nose and Mouth. Neck: Full range of motion..~ No meningismus. Resp: Clear to auscultation bilaterally Cardio: Regular rate and rhythm, no murmurs Abd: Soft, non tender, non distended. Normal bowel sounds Skin: No petechiae or rashes Back: No midline or flank tenderness Ext: No cyanosis, or edema Neur: Awake and alert Psych: Normal Mood and Affect Results 24 hrs Current Medications Medications (Trade) Dose Ordered Sig/Carmen Route PRN Reason Start Time Stop Time Status Last Admin Dose Admin Sodium Chloride (NS) 500 ml @ 500 mls/hr Q1H STAT IV 06/01/16 21:57 06/01/16 22:56 DC 06/01/16 22:40 IV Flush (NS 3 ml) 3 ml PER PROTOCOL IV 06/02/16 00:30 06/04/16 22:43 DC Acetaminophen (Tylenol Tab) 650 mg Q6H PRN PO PAIN LEVEL 1-3 OR FEVER 06/02/16 00:30 06/04/16 22:43 DC 06/04/16 00:27 Docusate Sodium (Colace) 100 mg Q12H PRN PO CONSTIPATION 06/02/16 00:30 06/04/16 22:43 DC Famotidine (Pepcid) 20 mg Q12 PO 06/02/16 00:30 06/04/16 22:43 DC 06/04/16 08:18 Meclizine HCl (Antivert) 50 mg ONCE ONCE PO 06/02/16 04:00 06/02/16 04:01 DC 06/02/16 03:42 Potassium Chloride (Klor-Con 20) 20 meq ONCE STAT PO 06/02/16 10:10 06/02/16 10:20 DC 06/02/16 11:04 Ondansetron HCl (Zofran Inj) 4 mg Q6H PRN IV NAUSEA AND/OR VOMITING 06/02/16 11:00 06/04/16 22:43 DC Meclizine HCl 25 mg 25 mg TID PRN PO VERTIGO, DIZZINESS 06/02/16 11:00 06/03/16 12:19 DC 06/02/16 20:23 Sodium Chloride 500 ml @ 500 mls/hr Q1H ONCE IV 06/02/16 11:00 06/02/16 11:59 DC 06/02/16 11:46 Sodium Chloride (NS) 1,000 ml @ 100 mls/hr Q10H IV 06/02/16 11:00 06/04/16 12:27 DC 06/03/16 21:43 Meclizine HCl (Antivert) 25 mg TID PO 06/03/16 13:00 06/04/16 12:26 DC 06/04/16 08:19 IV Flush 10 ml 10 ml STK-MED ONCE .ROUTE 06/03/16 16:18 06/03/16 16:19 DC 06/03/16 16:38 Sodium Chloride (NS) 100 ml @ ud STK-MED ONCE .ROUTE 06/03/16 16:18 06/03/16 16:19 DC 06/03/16 16:38 Iodixanol 100 ml 100 ml STK-MED ONCE .ROUTE 06/03/16 16:18 06/03/16 16:19 DC Iohexol 100 ml @ ud STK-MED ONCE .ROUTE 06/03/16 16:42 06/03/16 16:43 DC 06/03/16 16:44 Magnesium Sulfate (Magnesium Sulfate 2 Gm/50 ml) 50 ml @ 25 mls/hr ONCE ONCE IVPB 06/04/16 09:00 06/04/16 10:59 DC 06/04/16 09:01 Salmeterol Xinafoate/ Fluticasone (Advair 100/50 Diskus) 1 inh BID INH 06/04/16 10:00 06/04/16 22:43 DC 06/04/16 11:00 Albuterol (Ventolin Hfa) 2 puff Q6HWA RESP THERAPY PRN INH SHORTNESS OF BREATH 06/04/16 09:00 06/04/16 22:43 DC Meclizine HCl (Antivert) 12.5 mg TID PO 06/04/16 13:00 06/04/16 22:43 DC 06/04/16 13:25 Procedures/MDM EKG: Rate/Rhythm: Normal Sinus Rhythm QRS, ST, T-waves: No changes consistent w/ acute ischemia Impression: No evidence of ischemia or arrhythmia Chest X-ray 1V Interpreted by me: Soft Tissue: No acute abnormalities Bones: No acute abnormalities Mediastinum/Cardiac Silhouette/Lungs: No acute abnormalities CT of the head is negative Medical assessment: 21-year-old female comes in with recurrent sickle episodes. Patient will be admitted to hospitalist for IPA. Admitted to telemetry. Departure Diagnosis: Primary Impression: Shortness of breath Additional Impression: Syncope Qualified Code: R55 - Syncope, unspecified syncope type Condition: Serious Patient Instructions: Managing Dizziness (Vertigo) with Medications, Dizziness (Vertigo) and Balance Problems: Diagnostic Tests, Dizziness (Vertigo) and Balance Problems: Ensuring Your Safety RIGOBERTO SALAZAR Jun 16, 2016 00:14
== END 2016-06-04 19:10 | disposition home or self-care (01) ==
LOC: E/R 19:40 → TEL 06-02 00:17 → UNDOADMOB 06-02 17:54
PROVIDERS: ADMIT Internal Medicine; ATTEND Internal Medicine
DX: R42 Dizziness and giddiness (principal); R55 Syncope and collapse; R06.02 Shortness of breath; Z88.1 Allergy status to other antibiotic agents; Z88.8 Allergy status to other drugs, medicaments and biological substances
CPT/HCPCS: 70450; 70544; 70549; 70551; 71010; 71275; 80048; 80053; 80307; 81001; 82550; 82553; 83036; 83735; 83880; 84100; 84439; 84443; 84484; 85025; 85378; 85610; 85730; 93005; 93306; 96360; 96361; 96374; 97162; J3475; J7030; J7040; Q9967; Z7500; Z7610; 81003; G0378

== ENCOUNTER 2016-06-24 17:28 | Emergency (ER) | payer OTHER ==
[~2016-06-24] VITALS: Ht 152.4 cm; Wt 50.0 kg
[~2016-06-24 17:28] MED LIST changes: -ACET500C5 PO; +ADV10050 INH; +ALBU18HF INH; +MECL-77 PO; -ONDA4TAB8 PO; -OSLT75C PO; -OXYM15SP34 NASAL; -UDROBDM PO
[2016-06-24 17:34] VITALS: Ht 152.4 cm; Wt 50.0 kg
[2016-06-24] MEDS ORDERED: HYDROCODONE/APAP (5/325) TAB PO ONE (20:30)
[2016-06-24 20:50] LABS: ADD SCAN DIFF NO
[2016-06-24 20:51] LABS: BASOPHILS % 0.1 % (0.0-2.0); EOSINOPHILS # 0.1 10^3/ul (0.0-0.5); EOSINOPHILS % 0.7 % (0.0-7.0); HEMATOCRIT 42.8 % (37.0-47.0); HEMOGLOBIN 14.2 g/dl (12.0-16.0); LYMPHOCYTES # 1.9 10^3/ul (0.8-2.9); LYMPHOCYTES % 14.9 % (15.0-51.0); MEAN CORPUSCULAR HEMOGLOBIN 27.9 pg (29.0-33.0); MEAN CORPUSCULAR HGB CONC 33.2 g/dl (32.0-37.0); MEAN CORPUSCULAR VOLUME 84.1 fl (82.0-101.0); MEAN PLATELET VOLUME 9.9 fl (7.4-10.4); MONOCYTE # 0.9 10^3/ul (0.3-0.9); MONOCYTES % 7.2 % (0.0-11.0); NEUTROPHILS % 76.9 % (39.0-77.0); PLATELET COUNT 295 10^3/UL (140-415); RED BLOOD COUNT 5.09 10^6/ul (4.20-5.40); RED CELL DISTRIBUTION WIDTH 12.9 % (11.5-14.5)
[2016-06-24 20:56] LABS: ADD UMIC YES; URINE BILIRUBIN (Dip) NEGATIVE (NEGATIVE); URINE BLOOD (Dip) NEGATIVE (NEGATIVE); URINE GLUCOSE (Dip) NEGATIVE (NEGATIVE); URINE KETONES (Dip) NEGATIVE (NEGATIVE); URINE LEUKOCYTE ESTERASE (Dip) 2+ (NEGATIVE); URINE NITRITE (Dip) NEGATIVE (NEGATIVE); URINE TOTAL PROTEIN (Dip) TRACE (NEGATIVE); URINE UROBILINOGEN (Dip) 0.2 E.U./dL (0.1-1.0)
[2016-06-24 21:06] LABS: ALBUMIN 4.9 g/dl (3.3-4.9)
[2016-06-24 21:07] LABS: POTASSIUM 3.4 mmol/L (3.5-5.1)
[2016-06-24 21:09] LABS: BILIRUBIN,INDIRECT 1.4 mg/dl (0-1.1); BILIRUBIN,TOTAL 1.4 mg/dl (0.2-1.3); CREATININE 0.53 mg/dl (0.44-1.00)
[2016-06-24 21:10] LABS: ALBUMIN/GLOBULIN RATIO 1.48; CALCIUM 9.4 mg/dl (8.4-10.2); TOTAL PROTEIN 8.2 g/dl (6.1-8.1); URINE COLOR YELLOW (YELLOW)
[2016-06-24 21:18] LABS: BACTERIA,URINE FEW; SQUAMOUS EPITHELIAL CELL,UR MODERATE; URINE RBCS 0-2 /HPF (0)
--- NOTE | 2016-06-24 21:24 | RADRPT ---
PROCEDURE: CT Brain without contrast. CLINICAL INDICATION: Syncope. Dizziness TECHNIQUE: A multiplanar CT of the brain was performed on a CT scanner utilizing axial imaging fro m the skull base through the vertex without IV contrast. The CTDIvol is 6.54 mGy and the DLP is 152 .89 mGycm. One or more of the following dose reduction techniques were utilized: Automated exposur e control, adjustment of the mA and/or kV according to patient size, use of iterative reconstruction technique. COMPARISON: MRI brain 06/03/[address] brain 06/01/2016 FINDINGS: No evidence of intracranial hemorrhage or abnormal extra-axial fluid collection. The brain parenchyma is normal attenuation morphology with preservation of villasenor white differentiatio n and age appropriate size of the ventricles and subarachnoid spaces. The basal cisterns, posterior fossa contents, brainstem, craniocervical junction, orbits, pituitary axis, paranasal sinuses, mastoid air cells, and calvarium are unremarkable. IMPRESSION: 1. No intracranial hemorrhage or acute intracranial abnormality. RPTAT:AAJJ Physician Kiarra Date Time Electronically viewed and signed by Physician Kiarra on 06/24/2016 21:23 JESSICA/
--- NOTE | 2016-06-24 21:27 | RADRPT ---
PROCEDURE: CT L-Spine. CLINICAL INDICATION: Syncope and dizziness. TECHNIQUE: A CT of the lumbar spine was performed on a CT scanner utilizing high-resolution thin s ection axial images from the thoracic lumbar junction through the lumbar sacral junction. Sagittal and coronal and multiplanar reformatted images were made.The CTDIvol is 6.54 mGy and the DLP is 152. 89 mGycm. One or more of the following dose reduction techniques were utilized: Automated exposure control, adjustment of the mA and/or kV according to patient size, use of iterative reconstruction t echnique. COMPARISON: None. FINDINGS: Vertebral bodies normal height, density, and alignment with preservation of disk height. Mild multi level degenerative endplate changes involving the entire visualized lumbar spine and thoracic spine. No fracture or subluxation. T12-L1: The disk is normal in height. No disk bulge, protrusion, or stenosis. L1-2: The disk is normal in height. No disk bulge, protrusion, or stenosis. L2-3: The disk is normal in height. No disk bulge, protrusion, or stenosis. \ L3-4: The disk is normal in height. No disk bulge, protrusion, or stenosis. L4-5: The disk is normal in height. No disk bulge, protrusion, or stenosis. L5-S1: The disk is normal in height. Mild posterior disk bulging without disk protrusion or stenosis . No paraspinal soft tissue abnormality. IMPRESSION: 1. No fracture, subluxation, or focal disk protrusion. No evidence of foraminal or central canal st enosis. RPTAT:AAJJ Physician Kiarra Date Time Electronically viewed and signed by Physician Kiarra on 06/24/2016 21:27 JESSICA/
[2016-06-24] MEDS ORDERED: HYDR-906 PO (22:32)
[2016-06-24] MEDS ORDERED: IBUP-1542 PO (22:33)
[2016-06-24] MEDS ORDERED: NITR-58 PO (22:33)
--- NOTE | 2016-06-24 22:44 | ERD ---
ER Documentation Chief Complaint Date/Time DATE: 06/24/16 TIME: 22:38 Chief Complaint dizziness , lower back pain raditing to b/l legs HPI This is a 21-year-old female that presents to the ER with continued dizziness and syncope. Patient was recently admitted to the hospital 3 weeks ago and an extensive workup was done which included MRI of the brain, MRA of the brain, CTA of the chest and echocardiogram. Patient was stable for outpatient follow- up and was told to continue with meclizine. Patient states that meclizine does help her however she did have one episode of syncope earlier today. Patient did not hit her head. She does not know how long the syncopal episode lasted. Patient is now complaining of lower back pain which extends into her left leg. Patient states that her left leg feels numb and tingly. She denies any urinary bowel incontinence she denies any saddle like anesthesia. Patient denies any fevers or chills. She denies any back trauma. Patient denies any nausea vomiting or diarrhea. ROS 12 point review of systems was done, all negative except per HPI. Medications Home Meds Active Scripts Nitrofurantoin Monohyd Macrocr* (Macrobid*) 100 Mg Capsr, 100 MG PO BID for 7 Days, CAP Prov:GRISELDA GARZA 06/24/16 Ibuprofen* (Motrin*) 600 Mg Tab, 600 MG PO Q6, #30 TAB Prov:GRISELDA GARZA 06/24/16 Hydrocodone/Acetaminophen ([place] 5-325 Tablet) 1 Each Tablet, 1 TAB PO Q6H Y for PAIN, #10 TAB Prov:GRISELDA GARZA 06/24/16 Meclizine Hcl* (Meclizine Hcl*) 25 Mg Tablet, 12.5 MG PO TID for 30 Days, TAB 1/2 tab Prov:IJEOMA REYES 06/04/16 Salmeterol Xinaf-Fluticasone* (Advair*) 100/50 Diskus Inhaler, 1 INH INH BID, # 1 3 Refills Prov:IJEOMA REYES 06/04/16 Albuterol Sulfate* (Ventolin HFA*) 18 Gm Hfa.aer.ad, 2 PUFF INH Q6HWA RESP THERAPY Y for SHORTNESS OF BREATH, #1 3 Refills Prov:IJEOMA REYES 06/04/16 Allergies Allergies: Coded Allergies: Metronidazole HCl (Verified Allergy, Unknown, HIGH BP, DIARRHEA, VOMITTING , PAIN, 06/01/16) ciprofloxacin (Verified Allergy, Unknown, HIGH BP, DIARRHEA, VOMITTING, PAIN, 06/01/16) ciprofloxacin HCl (Verified Allergy, Unknown, HIGH BP, DIARRHEA, VOMITTING , PAIN, 06/01/16) ketorolac (Verified Allergy, Unknown, SOB, 06/01/16) metronidazole (Verified Allergy, Unknown, HIGH BP, DIARRHEA, VOMITTING, PAIN, 04/15/15) PMhx/Soc History of Surgery: No Anesthesia Reaction: No Hx Neurological Disorder: No Hx Respiratory Disorders: No Hx Cardiac Disorders: Yes (HX OF HEART DEFECT PER PATIENT ) Hx Psychiatric Problems: No Hx Miscellaneous Medical Probl: Yes (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 ) Hx Alcohol Use: No Hx Substance Use: No Hx Tobacco Use: No Smoking Status: Never smoker Physical Exam Vitals Vital Signs Date Time Temp Pulse Resp B/P Pulse Ox O2 Delivery O2 Flow Rate FiO2 06/24/16 17:34 97.8 90 18 130/80 98 Physical Exam GENERAL: The patient is well developed and appropriate for usual state of health , in no apparent distress. HEENT: Atraumatic. Conjunctivae are pink. Pupils equal, round, and reactive to light. Extraocular muscles are grossly intact. Bilateral tympanic membranes are clear with no evidence of erythema, bulging or perforation. No sinus tenderness. NECK: C-spine is soft and supple. There is no cervical lymphadenopathy. CHEST: Clear to auscultation bilaterally. There are no rales, wheezes or rhonchi. HEART: Regular rate and rhythm. No murmurs, clicks, rubs or gallops. EXTREMITIES: Equal pulses bilaterally. There is no peripheral clubbing, cyanosis or edema. No focal swelling or erythema. Full range of motion. Grossly neurovascularly intact. NEURO: Alert and oriented. Cranial nerves II through XII are intact. Motor strength in all 4 extremities with 5/5 strength. Sensation grossly intact. Normal speech and gait. Negative Rhomberg. +2 DTRs. SKIN: There is no apparent rash or petechia. The skin is warm and dry. Result Diagram: 06/24/16203406/24/162034 Results 24 hrs Laboratory Tests Test 06/24/16 20:35 White Blood Count 13.010^3/ul Red Blood Count 5.0910^6/ul Hemoglobin 14.2g/dl Hematocrit 42.8% Mean Corpuscular Volume 84.1fl Mean Corpuscular Hemoglobin 27.9pg Mean Corpuscular Hemoglobin Concent 33.2g/dl Red Cell Distribution Width 12.9% Platelet Count 28633^3/UL Mean Platelet Volume 9.9fl Neutrophils % 76.9% Lymphocytes % 14.9% Monocytes % 7.2% Eosinophils % 0.7% Basophils % 0.1% Nucleated Red Blood Cells % 0.0/100WBC Neutrophils # 10.010^3/ul Lymphocytes # 1.910^3/ul Monocytes # 0.910^3/ul Eosinophils # 0.110^3/ul Basophils # 0.010^3/ul Nucleated Red Blood Cells # 0.010^3/ul Urine Color YELLOW Urine Clarity CLEAR Urine pH 6.0 Urine Specific [place] 1.020 Urine Ketones NEGATIVE Urine Nitrite NEGATIVE Urine Bilirubin NEGATIVE Urine Urobilinogen 0.2 E.U./dL Urine Leukocyte Esterase 2+ Urine Microscopic RBC 0-2/HPF Urine Microscopic WBC 5-10/HPF Urine Squamous Epithelial Cells MODERATE Urine Bacteria FEW Urine Hemoglobin NEGATIVE Urine Glucose NEGATIVE% Urine Total Protein TRACE Sodium Level 137mmol/L Potassium Level 3.4mmol/L Chloride Level 97mmol/L Carbon Dioxide Level 26mmol/L Anion Gap 17 Blood Urea Nitrogen 11mg/dl Creatinine 0.53mg/dl Glucose Level 90mg/dl Calcium Level 9.4mg/dl Total Bilirubin 1.4mg/dl Direct Bilirubin 0.00mg/dl Indirect Bilirubin 1.4mg/dl Aspartate Amino Transf (AST/SGOT) 21IU/L Alanine Aminotransferase (ALT/SGPT) 31IU/L Alkaline Phosphatase 96IU/L Total Protein 8.2g/dl Albumin 4.9g/dl Globulin 3.30g/dl Albumin/Globulin Ratio 1.48 Current Medications Medications (Trade) Dose Ordered Sig/Carmen Route PRN Reason Start Time Stop Time Status Last Admin Dose Admin Acetaminophen/ Hydrocodone Bitart ([place] (5/325)) 1 tab ONCE ONCE PO 06/24/16 20:30 06/24/16 20:31 DC 06/24/16 20:45 Procedures/MDM EKG rad by Dr. Bravo 86bpm no ST elevation or wave inversion Differential Diagnosis includes but is not limited to; Benign positional vertigo , labyrinthitis, vertigo, MS, acoustic neuroma, arrhythmia, anemia, hypoglycemia , infection, dehydration. I discussed this case with my supervising physician Dr. Bravo. At this time there is no evidence of arrhythmia and patient is neurologically intact with no focal neurological deficits. Patient is afebrile and well-appearing. There was no evidence of intracranial bleed. Patient may have vertigo as dizziness is described as a spinning sensation. There was no evidence of anemia, infection or hypoglycemia. In regards to patient's new back pain, Suspicion for cauda equina or epidural abscess is low. Patient may have sciatica as pain radiates down one leg and she does have numbness and tingiling of her extremity. patient however is able to ambulate and is n/v intact to bilateral lower extremities. Suspicion for DVT, deep space infection, myositis, rhabdom is low. Patient will be sent home with [place], ibuprofen, Macrobid. Patient is to follow-up with her primary care doctor within 1-2 days or return to ER sooner if symptoms worsen. My medical decision making was shared with the patient she understands and agrees with plan. Patient was told to urgently follow up with neurologist. Departure Diagnosis: Primary Impression: Multiple complaints Condition: Stable Patient Instructions: Back Pain (Acute Or Chronic) Referrals: MONY SOMERS (PCP) Additional Instructions: Call your primary care doctor TOMORROW for an appointment during the next 1-2 days.See the doctor sooner or return here if your condition worsens before your appointment time. GRISELDA GARZA June 24, 2016 22:44
[2016-06-24 23:14] VITALS: BP 113/71; PULSE 82; RESP 14; TEMP 98.7
== END 2016-06-24 23:15 | disposition home or self-care (01) ==
LOC: FTE 17:28
DX: R42 Dizziness and giddiness (principal); M54.5 Low back pain; R55 Syncope and collapse; R20.0 Anesthesia of skin; R20.2 Paresthesia of skin
CPT/HCPCS: 70450; 72131; 80053; 81001; 85025; 93005; Z7502; Z7610; 81003

== ENCOUNTER 2016-07-21 00:46 | Emergency (ER) | payer OTHER ==
[~2016-07-21] VITALS: Ht 152.4 cm; Wt 52.5 kg
[~2016-07-21 00:46] MED LIST changes: +HYDR-906 PO; +IBUP-1542 PO; +NITR-58 PO
[2016-07-21 00:48] VITALS: Ht 152.4 cm; Wt 52.5 kg
--- NOTE | 2016-07-21 01:17 | ERA ---
ER Documentation Chief Complaint Date/Time DATE: 07/21/16 TIME: Chief Complaint Chronic dizziness HPI The patient is a 21-year-old female, presenting to the ER because of acute on chronic dizziness. It is questionable whether she had a syncopal episode at 5 PM while she was laying on the bed. She had extensive negative syncope workup including MRI, MRA, CT angiogram of the chest. She was seen in the ER recently on June 24, 2016 when she had another negative CT of the brain. She denies seizure, neck pain, chest pain, palpitation, abdominal pain, vomiting, dysuria, diarrhea. She has not seen a neurologist yet. She does not smoke does not drink nor does illegal drug. She wants an excuse to go to work today Past medical history: Chronic dizziness, chronic low back pain, asthma Past surgical history: Appendectomy ROS All systems reviewed and are negative except as per history of present illness. Medications Home Meds Active Scripts Meclizine Hcl* (Antivert*) 12.5 Mg Tab, 25 MG PO Q6H Y for DIZZINESS, #20 TAB Prov:ESTEFANI JASON MD 07/21/16 Ibuprofen* (Motrin*) 600 Mg Tab, 600 MG PO Q6, #30 TAB Prov:GRISELDA GARZA 06/24/16 Meclizine Hcl* (Meclizine Hcl*) 25 Mg Tablet, 12.5 MG PO TID for 30 Days, TAB 1/2 tab Prov:IJEOMA REYES 06/04/16 Albuterol Sulfate* (Ventolin HFA*) 18 Gm Hfa.aer.ad, 2 PUFF INH Q6HWA RESP THERAPY Y for SHORTNESS OF BREATH, #1 3 Refills Prov:IJEOMA REYES 06/04/16 Discontinued Scripts Nitrofurantoin Monohyd Macrocr* (Macrobid*) 100 Mg Capsr, 100 MG PO BID for 7 Days, CAP Prov:GRISELDA GARZA 06/24/16 Hydrocodone/Acetaminophen ([place] 5-325 Tablet) 1 Each Tablet, 1 TAB PO Q6H Y for PAIN, #10 TAB Prov:GRISELDA GARZA 06/24/16 Salmeterol Xinaf-Fluticasone* (Advair*) 100/50 Diskus Inhaler, 1 INH INH BID, # 1 3 Refills Prov:IJEOMA REYES 06/04/16 Allergies Allergies: Coded Allergies: Metronidazole HCl (Unverified Allergy, Unknown, HIGH BP, DIARRHEA, VOMITTING, PAIN, 07/21/16) ciprofloxacin (Unverified Allergy, Unknown, HIGH BP, DIARRHEA, VOMITTING, PAIN, 07/21/16) ciprofloxacin HCl (Unverified Allergy, Unknown, HIGH BP, DIARRHEA, VOMITTING, PAIN, 07/21/16) ketorolac (Unverified Allergy, Unknown, SOB, 07/21/16) metronidazole (Unverified Allergy, Unknown, HIGH BP, DIARRHEA, VOMITTING, PAIN, 07/21/16) PMhx/Soc History of Surgery: No Anesthesia Reaction: No Hx Neurological Disorder: No Hx Respiratory Disorders: No Hx Cardiac Disorders: Yes (HX OF HEART DEFECT PER PATIENT ) Hx Psychiatric Problems: No Hx Miscellaneous Medical Probl: Yes (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 ) Hx Alcohol Use: No Hx Substance Use: No Hx Tobacco Use: No Physical Exam Vitals Vital Signs Date Time Temp Pulse Resp B/P Pulse Ox O2 Delivery O2 Flow Rate FiO2 07/21/16 03:28 98.6 80 18 115/72 100 Room Air 07/21/16 02:00 87 22 108/75 100 Room Air 07/21/16 01:17 72 17 112/87 100 Room Air 07/21/16 00:48 98.3 80 20 120/92 99 Physical Exam Const: No acute distress. Head: Atraumatic. Eyes: Normal Conjunctiva. ENT: Normal External Ears, Nose and Mouth. Bilateral tympanic membrane and oropharynx are within normal limits Neck: Full range of motion. No meningismus. Resp: Clear to auscultation bilaterally. Cardio: Regular rate and rhythm, no murmurs. Abd: Soft, non distended, normal bowel sounds, non tender. Skin: No petechiae or rashes. Back: No midline or flank tenderness. Ext: No cyanosis, or edema. Neur: Awake and alert. No focal deficit Psych: Normal Mood and Affect. Result Diagram: 07/21/16 0145 07/21/16 0145 Results 24 hrs Laboratory Tests Test 07/21/16 01:45 White Blood Count 10.010^3/ul Red Blood Count 4.7210^6/ul Hemoglobin 13.2g/dl Hematocrit 39.7% Mean Corpuscular Volume 84.1fl Mean Corpuscular Hemoglobin 28.0pg Mean Corpuscular Hemoglobin Concent 33.2g/dl Red Cell Distribution Width 12.6% Platelet Count 40137^3/UL Mean Platelet Volume 10.3fl Neutrophils % 58.3% Lymphocytes % 33.6% Monocytes % 6.6% Eosinophils % 1.2% Basophils % 0.1% Nucleated Red Blood Cells % 0.0/100WBC Neutrophils # 5.810^3/ul Lymphocytes # 3.410^3/ul Monocytes # 0.710^3/ul Eosinophils # 0.110^3/ul Basophils # 0.010^3/ul Nucleated Red Blood Cells # 0.010^3/ul Sodium Level 140mmol/L Potassium Level 4.2mmol/L Chloride Level 108mmol/L Carbon Dioxide Level 27mmol/L Anion Gap 9 Blood Urea Nitrogen 22mg/dl Creatinine 0.56mg/dl Glucose Level 87mg/dl Calcium Level 9.2mg/dl Current Medications Medications (Trade) Dose Ordered Sig/Carmen Route PRN Reason Start Time Stop Time Status Last Admin Dose Admin Sodium Chloride (NS) 1,000 ml @ 1,000 mls/hr Q1H STAT IV 07/21/16 01:27 07/21/16 02:26 DC 07/21/16 01:43 Ondansetron HCl (Zofran Inj) 4 mg ONCE STAT IV 07/21/16 01:27 07/21/16 01:29 DC 07/21/16 01:42 Meclizine HCl (Antivert) 25 mg ONCE ONCE PO 07/21/16 01:30 07/21/16 01:31 DC 07/21/16 01:43 Procedures/MDM EKG: Read by emergency physician Rate/Rhythm: Normal Sinus Rhythm 69 beats/min QRS, ST, T-waves: No ST elevation, no T inversion, incomplete right bundle branch block Impression: Normal EKG MEDICAL MAKING DECISION: The patient is a 21-year-old female, presenting with chronic dizziness of unclear etiology. She was treated with 1 L normal saline for clinical dehydration, Zofran formalin IV for nausea and Antivert 25 mg p.o. for dizziness with good response The differential diagnoses considered include but are not limited to central causes such as cerebellar infarct, cerebellar hemorrhage, cerebellar tumor, acoustic neuroma, peripheral causes such as benign positional vertigo, labyrinthitis, medication, Meniere's disease. Departure Diagnosis: Primary Impression: Dizziness Condition: Good Comments She was discharged with Antivert and an excuse for work I discussed the findings with the patient. I advised the patient to follow-up with the primary physician in about 1-2 days, sooner if needed and return if any concern. The patient's blood pressure was elevated (>120/80) but appears stable without evidence of hypertension emergency or urgency. The patient was counseled about the risks of hypertension and urged to pursue outpatient monitoring and therapy within a week with their primary care physician. ESTEFANI JASON MD July 21, 2016 01:17
[2016-07-21] MEDS ORDERED: SOD CHLORIDE 0.9% 1,000 ML IV STA (01:27)
[2016-07-21] MEDS ORDERED: ONDANSETRON 4 MG INJ IV STA (01:27)
[2016-07-21] MEDS ORDERED: MECLIZINE 12.5 MG TAB PO ONE (01:30)
[2016-07-21 02:12] LABS: ADD SCAN DIFF NO
[2016-07-21 02:15] LABS: BASOPHILS % 0.1 % (0.0-2.0); EOSINOPHILS # 0.1 10^3/ul (0.0-0.5); EOSINOPHILS % 1.2 % (0.0-7.0); HEMATOCRIT 39.7 % (37.0-47.0); HEMOGLOBIN 13.2 g/dl (12.0-16.0); LYMPHOCYTES # 3.4 10^3/ul (0.8-2.9); LYMPHOCYTES % 33.6 % (15.0-51.0); MEAN CORPUSCULAR HGB CONC 33.2 g/dl (32.0-37.0); MEAN CORPUSCULAR VOLUME 84.1 fl (82.0-101.0); MEAN PLATELET VOLUME 10.3 fl (7.4-10.4); MONOCYTE # 0.7 10^3/ul (0.3-0.9); MONOCYTES % 6.6 % (0.0-11.0); NEUTROPHIL # 5.8 10^3/ul (1.6-7.5); NEUTROPHILS % 58.3 % (39.0-77.0); PLATELET COUNT 307 10^3/UL (140-415); RED BLOOD COUNT 4.72 10^6/ul (4.20-5.40); RED CELL DISTRIBUTION WIDTH 12.6 % (11.5-14.5)
[2016-07-21 03:08] LABS: POTASSIUM 4.2 mmol/L (3.5-5.1)
[2016-07-21 03:11] LABS: CREATININE 0.56 mg/dl (0.44-1.00)
[2016-07-21 03:12] LABS: CALCIUM 9.2 mg/dl (8.4-10.2)
[2016-07-21] MEDS ORDERED: MECL12.574 PO (04:07)
[2016-07-21 04:37] VITALS: BP 106/70; PULSE 77; RESP 18; TEMP 98.6
== END 2016-07-21 04:40 | disposition home or self-care (01) ==
LOC: E/R 00:46
DX: R42 Dizziness and giddiness (principal); R11.0 Nausea; J45.909 Unspecified asthma, uncomplicated
CPT/HCPCS: 36415; 80048; 85025; 93005; 96374; J2405; J7030; Z7502; Z7610

== ENCOUNTER 2016-11-01 12:22 | Emergency (ER) | payer MEDICAID, OTHER ==
[~2016-11-01] VITALS: Ht 157.5 cm; Wt 76.0 kg
[~2016-11-01 12:22] MED LIST changes: -ADV10050 INH; -HYDR-906 PO; +MECL12.574 PO; -NITR-58 PO
[2016-11-01 12:25] VITALS: Ht 157.5 cm; Wt 76.0 kg
[2016-11-01] MEDS ORDERED: KETOROLAC 60 MG INJ IM STA (12:44)
--- NOTE | 2016-11-01 13:36 | RADRPT ---
PROCEDURE: XR Foot. CLINICAL INDICATION: Pain TECHNIQUE: Three views of the left foot are available for review. COMPARISON: None available FINDINGS: There is no acute osseous or articular abnormality. No evidence for fracture. Bone mineral density is preserved. The articular surfaces are smooth without evidence of marginal erosions. The soft tis sues are intact without evidence of calcifications. IMPRESSION: 1. No acute osseous abnormality. RPTAT: AA .Parag Carrillo MD, MD Date Time Electronically viewed and signed by .Parag Carrillo MD, on 11/01/2016 13:36 .d/
[2016-11-01] MEDS ORDERED: IBUP-1542 PO (14:02)
--- NOTE | 2016-11-01 14:59 | ERD ---
ER Documentation Chief Complaint Date/Time DATE: 11/01/16 TIME: 14:55 Chief Complaint left foot pain HPI 21-year-old female patient with no significant past medical history presents to the ED complaining of the left foot pain that started 7 days ago. States that her baby accidentally ran over her foot with a walker 7 days ago. Reports that she feels like it is swollen and feels numb. Describes the pain as pulsation sensation. Rates the pain a 9 out of 10. States that she has been taking Tylenol without relief. Denies any loss of sensation, loss of range of motion, weakness, fever, chills. ROS All systems reviewed and are negative except as per history of present illness. Medications Home Meds Active Scripts Ibuprofen* (Motrin*) 600 Mg Tab, 600 MG PO Q6, #30 TAB Prov:NINOSKA CARRILLO PA-C 11/01/16 Meclizine Hcl* (Antivert*) 12.5 Mg Tab, 25 MG PO Q6H Y for DIZZINESS, #20 TAB Prov:ESTEFANI JASON MD 07/21/16 Ibuprofen* (Motrin*) 600 Mg Tab, 600 MG PO Q6, #30 TAB Prov:GRISELDA GARZA 06/24/16 Meclizine Hcl* (Meclizine Hcl*) 25 Mg Tablet, 12.5 MG PO TID for 30 Days, TAB 1/2 tab Prov:IJEOMA REYES 06/04/16 Albuterol Sulfate* (Ventolin HFA*) 18 Gm Hfa.aer.ad, 2 PUFF INH Q6HWA RESP THERAPY Y for SHORTNESS OF BREATH, #1 3 Refills Prov:IJEOMA REYES 06/04/16 Allergies Allergies: Coded Allergies: Metronidazole HCl (Unverified Allergy, Unknown, HIGH BP, DIARRHEA, VOMITTING, PAIN, 07/21/16) ciprofloxacin (Unverified Allergy, Unknown, HIGH BP, DIARRHEA, VOMITTING, PAIN, 07/21/16) ciprofloxacin HCl (Unverified Allergy, Unknown, HIGH BP, DIARRHEA, VOMITTING, PAIN, 07/21/16) metronidazole (Unverified Allergy, Unknown, HIGH BP, DIARRHEA, VOMITTING, PAIN, 07/21/16) PMhx/Soc Medical and Surgical Hx: pt denies Medical Hx, pt denies Surgical Hx History of Surgery: No Anesthesia Reaction: No Hx Neurological Disorder: No Hx Respiratory Disorders: No Hx Cardiac Disorders: Yes (HX OF HEART DEFECT PER PATIENT ) Hx Psychiatric Problems: No Hx Miscellaneous Medical Probl: Yes (per notes h/o "brain cyst" and "heart defect", VERTIGO ) Hx Alcohol Use: No Hx Substance Use: No Hx Tobacco Use: No Smoking Status: Never smoker Physical Exam Vitals Vital Signs Date Time Temp Pulse Resp B/P Pulse Ox O2 Delivery O2 Flow Rate FiO2 11/01/16 12:25 98.1 85 18 122/75 99 Physical Exam Const: [id number], well-nourished. In no acute distress. Head: Atraumatic, normocephalic Eyes: Normal Conjunctiva without injection ENT: Normal external ear, nose and mouth. Neck: Full range of motion. No meningismus. Resp: Clear to auscultation bilaterally. No wheezing, rhonchi, rales, or crackles. No accessory muscle use. No retractions. Cardio: Regular rate and rhythm, no murmurs Skin: No petechiae or rashes Back: No midline tenderness. No CVA tenderness. Ext: No cyanosis, or edema. Cap refill less than 2 seconds. Distal pulses intact bilaterally. Tender to palpation of left dorsal foot. No erythema, edema, fluctuance. Full range of motion of flexion and extension of bilateral feet. Neur: Awake and alert. Normal gait and coordination. Muscle strength 5/5. Sensation intact bilaterally. Psych: Normal Mood and Affect Results 24 hrs Current Medications Medications (Trade) Dose Ordered Sig/Carmen Route PRN Reason Start Time Stop Time Status Last Admin Dose Admin Ketorolac Tromethamine (Toradol) 60 mg ONCE STAT IM 11/01/16 12:44 11/01/16 12:47 DC 11/01/16 12:55 Procedures/MDM 21-year-old female patient with no significant past medical history presents to the ED complaining of left foot pain. Patient is afebrile and nontoxic- appearing. Patient has normal vital signs. Foot xray was ordered to further evaluate patient. PROCEDURE: XR Foot. CLINICAL INDICATION: Pain TECHNIQUE: Three views of the left foot are available for review. COMPARISON: None available FINDINGS: There is no acute osseous or articular abnormality. No evidence for fracture. Bone mineral density is preserved. The articular surfaces are smooth without evidence of marginal erosions. The soft tissues are intact without evidence of calcifications. IMPRESSION: 1. No acute osseous abnormality. Patient likely sustained a foot sprain. Patient is placed in a karine wrap of left foot. Crutches were given to patient to help with ambulation. Splint Assessment: Neurovascularly intact pre and post karine wrap placement with good fit. Extremity symptoms have stabilized while they have been evaluated in the department and are appropriate for outpatient follow up. No evidence of fractures, dislocations, compartment syndrome, neurologic injury, vascular injury, open joint, open fracture, tendon laceration, septic arthritis, osteomyelitis, DVT, foreign body, or other emergent conditions. Discharge medications: Ibuprofen Follow up with primary care physician in 1-2 days. Instructed patient to return to the ED sooner for any worsening symptoms. Follow up with orthopedic physician if symptoms do not improve. Patient's questions were answered. Patient understood and agreed with discharge plan. Patient discharged stable. Departure Diagnosis: Primary Impression: Injury of foot Encounter type: initial encounter Laterality: left Qualified Code: S99.922A - Injury of left foot, initial encounter Condition: Stable Patient Instructions: Crush Injury, Foot/Toe Referrals: MONY SOMERS (PCP) [facility] YOU HAVE RECEIVED A MEDICAL SCREENING EXAM AND THE RESULTS INDICATE THAT YOU DO NOT HAVE A CONDITION THAT REQUIRES URGENT TREATMENT IN THE EMERGENCY DEPARTMENT. FURTHER EVALUATION AND TREATMENT OF YOUR CONDITION CAN WAIT UNTIL YOU ARE SEEN IN YOUR DOCTORS OFFICE WITHIN THE NEXT 1-2 DAYS. IT IS YOUR RESPONSIBILITY TO MAKE AN APPOINTMENT FOR FOLOW-UP CARE. IF YOU HAVE A PRIMARY DOCTOR --you should call your primary doctor and schedule an appointment IF YOU DO NOT HAVE A PRIMARY DOCTOR YOU CAN CALL OUR PHYSICIAN REFERRAL HOTLINE AT IF YOU CAN NOT AFFORD TO SEE A PHYSICIAN YOU CAN CHOSE FROM THE FOLLOWING [facility] CL[facility] [address] [facility] [address] [facility] [address] [facility] [address] [facility] [address] [facility] [address] [facility] [facility] YOU HAVE RECEIVED A MEDICAL SCREENING EXAM AND THE RESULTS INDICATE THAT YOU DO NOT HAVE A CONDITION THAT REQUIRES URGENT TREATMENT IN THE EMERGENCY DEPARTMENT. FURTHER EVALUATION AND TREATMENT OF YOUR CONDITION CAN WAIT UNTIL YOU ARE SEEN IN YOUR DOCTORS OFFICE WITHIN THE NEXT 1-2 DAYS. IT IS YOUR RESPONSIBILITY TO MAKE AN APPOINTMENT FOR FOLOW-UP CARE. IF YOU HAVE A PRIMARY DOCTOR --you should call your primary doctor and schedule and appointment IF YOU DO NOT HAVE A PRIMARY DOCTOR YOU CAN CALL OUR PHYSICIAN REFERRAL HOTLINE AT . IF YOU CAN NOT AFFORD TO SEE A PHYSICIAN YOU CAN CHOSE FROM THE FOLLOWING [facility]: [facility] [address] [place] [address] [facility] [address] [place] [address] [facility] [address] [place] [address] [facility] Urgent Care 7 a.m.- 11 p.m. Every Day of the Week NO APPOINTMENT OR AUTHORIZATION NEEDED [facility] Hours: Mon-Fri 9:00 AM - 5:00 PM Additional Instructions: Call your primary care doctor TOMORROW for an appointment during the next 1-2 days.See the doctor sooner or return here if your condition worsens before your appointment time. NINOSKA CARRILLO PA-C Nov 01, 2016 14:59
== END 2016-11-01 15:29 | disposition home or self-care (01) ==
LOC: FTE 12:22
DX: S99.922A Unspecified injury of left foot, initial encounter (principal); W22.8XXA Striking against or struck by other objects, initial encounter; Y92.9 Unspecified place or not applicable
CPT/HCPCS: 73630; 96372; J1885; Z7502

== ENCOUNTER 2017-05-29 01:18 | Emergency (ER) | END 2017-05-29 04:16 | disposition home or self-care (01) ==

== ENCOUNTER 2018-04-23 10:43 | Emergency (ER) | payer OTHER ==
[~2018-04-23] VITALS: Ht 152.4 cm; Wt 57.4 kg
[~2018-04-23 10:43] MED LIST changes: +ACET325T33 PO
[2018-04-23 10:48] VITALS: BP 129/79; PULSE 62; RESP 17; Ht 152.4 cm; Wt 57.4 kg
[2018-04-23] MEDS ORDERED: CEPH-443 PO (13:36)
[2018-04-23] MEDS ORDERED: HYDR-4011 PO (13:36)
[2018-04-23] MEDS ORDERED: SULF1TAB31 PO (13:36)
--- NOTE | 2018-04-23 13:46 | ERD ---
ER Documentation Chief Complaint Chief Complaint RASH TO LEFT KNEE STARTED LAST NIGHT HPI This is a 22-year-old female with a past medical history of asthma in the past surgical history of an appendectomy who presents to the emergency department complaining of a rash to her right knee that started yesterday evening. The patient stated she felt a sudden sting to her right knee and believes she was bit by an insect. When she awoke this morning she stated that there had been swelling and she was complaining of pain over the insect bite. She had no fevers or shaking or chills. She took Motrin but this did not improve her pain. She denies any difficulty breathing ROS All systems reviewed and are negative except as per history of present illness. Medications Home Meds Active Scripts Cephalexin* (Keflex*) 500 Mg Capsule, 500 MG PO QID for 7 Days, CAP Prov:JOSE MARCANO MD 04/23/18 Sulfamethoxazole/Trimethoprim* (Bactrim Ds* Tablet) 1 Each Tablet, 1 TAB PO BID, #14 TAB Prov:JOSE MARCANO MD 04/23/18 Hydrocodone/Acetaminophen ([place] 5-325 Tablet) 1 Each Tablet, 1 TAB PO Q6H PRN for PAIN, #20 TAB Prov:JOSE MARCANO MD 04/23/18 Acetaminophen* (Tylenol*) 325 Mg Tablet, 2 TAB PO Q6 PRN for PAIN AND OR ELEVATED TEMP, #20 TAB Prov:CHAY MUELLER PA-C 05/29/17 Ibuprofen* (Motrin*) 600 Mg Tab, 600 MG PO Q6, #30 TAB Prov:NINOSKA CARRILLO PA-C 11/01/16 Meclizine Hcl* (Antivert*) 12.5 Mg Tab, 25 MG PO Q6H PRN for DIZZINESS, #20 TAB Prov:ESTEFANI JASON MD 07/21/16 Ibuprofen* (Motrin*) 600 Mg Tab, 600 MG PO Q6, #30 TAB Prov:GRISELDA GARZA 06/24/16 Meclizine Hcl* (Meclizine Hcl*) 25 Mg Tablet, 12.5 MG PO TID for 30 Days, TAB 1/2 tab Prov:IJEOMA REYES 06/04/16 Albuterol Sulfate* (Ventolin HFA*) 18 Gm Hfa.aer.ad, 2 PUFF INH Q6HWA RESP THERAPY PRN for SHORTNESS OF BREATH, #1 3 Refills Prov:IJEOMA REYES 06/04/16 Allergies Allergies: Coded Allergies: Metronidazole HCl (Unverified Allergy, Unknown, HIGH BP, DIARRHEA, VOMITTING, PAIN, 07/21/16) ciprofloxacin (Unverified Allergy, Unknown, HIGH BP, DIARRHEA, VOMITTING, PAIN, 07/21/16) ciprofloxacin HCl (Unverified Allergy, Unknown, HIGH BP, DIARRHEA, VOMITTING, PAIN, 07/21/16) metronidazole (Unverified Allergy, Unknown, HIGH BP, DIARRHEA, VOMITTING, PAIN, 07/21/16) PMhx/Soc History of Surgery: Yes (APPY) Anesthesia Reaction: No Hx Neurological Disorder: No Hx Respiratory Disorders: Yes (ASTHMA) Hx Cardiac Disorders: No Hx Psychiatric Problems: No Hx Miscellaneous Medical Probl: Yes (per notes h/o "brain cyst", VERTIGO ) Hx Alcohol Use: No Hx Substance Use: No Hx Tobacco Use: No Physical Exam Vitals Vital Signs Date Temp Pulse Resp B/P (MAP) Pulse Ox O2 O2 Flow FiO2 Time Delivery Rate 04/23/18 98.3 62 17 129/79 99 10:48 (96) Physical Exam Constitutional:Well-developed. Well-nourished. HEENT:Normocephalic. Atraumatic.Pupils were equal round reactive to light. Moist mucous membranes.No tonsillar exudates. No angioedema Respiratory: Not using accessory muscles of respiration.Lungs were clear to auscultation bilaterally. No rhonchi. No rales. No wheezing. Cardiovascular: Regular rate regular rhythm.No murmurs. No rubs were appreciated.S1, S2 normal. Distal pulses are palpable 2+ bilaterally. Muscle skeletal: Full range of motion of both the upper and lower extremities bilaterally.Normal muscle tone.No assymetrical calf tenderness or swelling. Skin: No petechia, no purpura. No lesions on the palms or the soles of the feet. No maculopapular rash. Well-circumscribed area of ischemia measuring 3 cm over the medial aspect of the right knee. The central area of inoculation site. Raised warm to the touch with no fluctuance or induration. NEURO: Patient was alert, awake, orientated x3.No facial droop. Gait observed and normal with no ataxia.Speech had regular rate and rhythm. No focal neurological deficits. Results 24 hrs Current Medications Medications Dose Sig/Carmen Start Time Status Last (Trade) Ordered Route PRN Stop Time Admin Dose Reason Admin Lidocaine 1 applic ONCE ONCE 04/23/18 (Lmx 4% Plus) TOP 14:00 04/23/18 14:01 Procedures/MDM The patient presented to the emergency department with a spreading erythematous superficial infection of the skin and subcutaneous tissues that appeared to be a result of an infected insect bite. My differential diagnosis included but was not limited to necrotizing fasciitis, lymphangitis, thrombophlebitis, deep vein thrombosis, allergic reaction, neoplasm, gout or abscess. Predisposing factors of the progressive spread of erythema, warmth, pain and tenderness was considered such as lymphedema, tinea pedis, open wounds, prior trauma or surgery, pre-existing skin lesion (furuncle), retained foreign body, injection drug use or vascular or immune compromise. The patient was placed on antibiotics to cover Staphylococcus aureus, including resistant strains such as community-acquired methicillin-resistant S. aureus. She was given Flagyl for analgesic control. 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 The patient was discharged home in fair condition. They were instructed to return to the emergency department at any time if there was any worsening of their condition. The patient stated they would follow up with their PCP in the next 24-48 hours to initiate a suitable medication regimen under the care of their PCP as well as to allow their PCP to monitor any drug reactions. The patient was discharged home with prescriptions after they gave informed consent to the new medication. They were also fully informed by myself on the adverse effects and adverse drug interactions in order to provide adequate safeguards to prevent possible adverse reactions to medications. Departure Diagnosis: Primary Impression: Infected insect bite Encounter type: initial encounter Qualified Codes: W57.XXXA - Bitten or stung by nonvenomous insect and other nonvenomous arthropods, initial encounter Condition: Fair Patient Instructions: Insect Sting/Bite, Infected Referrals: MONY SOMERS (PCP) JOSE MARCANO MD Apr 23, 2018 13:46
[2018-04-23] MEDS ORDERED: LIDOCAINE 4% CR TOP ONE (14:00)
== END 2018-04-23 14:59 | disposition home or self-care (01) ==
LOC: E/R 10:43
DX: S80.261A Insect bite (nonvenomous), right knee, initial encounter (principal); J45.909 Unspecified asthma, uncomplicated; W57.XXXA Bitten or stung by nonvenomous insect and other nonvenomous arthropods, initial encounter; Y92.9 Unspecified place or not applicable
CPT/HCPCS: Z7502; Z7610; 99283

== ENCOUNTER 2018-04-26 06:18 | Emergency (ER) | payer OTHER ==
[~2018-04-26] VITALS: Ht 157.5 cm; Wt 57.2 kg
[~2018-04-26 06:18] MED LIST changes: +CEPH-443 PO; +HYDR-4011 PO; +SULF1TAB31 PO
[2018-04-26 06:26] VITALS: BP 130/85; PULSE 84; RESP 18; Ht 157.5 cm; Wt 57.2 kg
[2018-04-26] MEDS ORDERED: PRED20TA PO (07:17)
[2018-04-26] MEDS ORDERED: HC30CR25 TOP (07:17)
[2018-04-26] MEDS ORDERED: predniSONE 20 MG TAB PO ONE (07:30)
--- NOTE | 2018-04-26 15:54 | ERD ---
ER Documentation Chief Complaint Chief Complaint painful rash on hands , onset yesterday HPI 22-year-old female presenting with painful rash on hands. Patient had this restaurant yesterday and has pain. Patient states that she has no other rash anywhere else and she has not medications on the site. Denies any fevers. 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 Patient has a medical history of asthma. Allergic to Dilaudid. Surgical history is appendectomy. Social history denies ROS All systems reviewed and are negative except as per history of present illness. Medications Home Meds Active Scripts Prednisone* (Prednisone*) 20 Mg Tab, 40 MG PO DAILY for 4 Days, #8 TAB Prov:CHAY MUELLER PA-C 04/26/18 Hydrocortisone* Topical (Hydrocortisone* Topical) 2.5%-28.3 Gm Cream..g., 1 APPLIC TOP BID, #1 TUB Prov:CHAY MUELLER PA-C 04/26/18 Cephalexin* (Keflex*) 500 Mg Capsule, 500 MG PO QID for 7 Days, CAP Prov:JOSE MARCANO MD 04/23/18 Sulfamethoxazole/Trimethoprim* (Bactrim Ds* Tablet) 1 Each Tablet, 1 TAB PO BID, #14 TAB Prov:JOSE MARCANO MD 04/23/18 Hydrocodone/Acetaminophen ([place] 5-325 Tablet) 1 Each Tablet, 1 TAB PO Q6H PRN for PAIN, #20 TAB Prov:JOSE MARCANO MD 04/23/18 Acetaminophen* (Tylenol*) 325 Mg Tablet, 2 TAB PO Q6 PRN for PAIN AND OR ELEVATED TEMP, #20 TAB Prov:CHAY MUELLER PA-C 05/29/17 Ibuprofen* (Motrin*) 600 Mg Tab, 600 MG PO Q6, #30 TAB Prov:NINOSKA CARRILLO PA-C 11/01/16 Meclizine Hcl* (Antivert*) 12.5 Mg Tab, 25 MG PO Q6H PRN for DIZZINESS, #20 TAB Prov:ESTEFANI JASON MD 07/21/16 Ibuprofen* (Motrin*) 600 Mg Tab, 600 MG PO Q6, #30 TAB Prov:GRISELDA GARZA 06/24/16 Meclizine Hcl* (Meclizine Hcl*) 25 Mg Tablet, 12.5 MG PO TID for 30 Days, TAB 1/2 tab Prov:IJEOMA REYES 06/04/16 Albuterol Sulfate* (Ventolin HFA*) 18 Gm Hfa.aer.ad, 2 PUFF INH Q6HWA RESP THERAPY PRN for SHORTNESS OF BREATH, #1 3 Refills Prov:IJEOMA REYES 06/04/16 Allergies Allergies: Coded Allergies: Metronidazole HCl (Unverified Allergy, Unknown, HIGH BP, DIARRHEA, VOMITTING, PAIN, 07/21/16) ciprofloxacin (Unverified Allergy, Unknown, HIGH BP, DIARRHEA, VOMITTING, PAIN, 07/21/16) ciprofloxacin HCl (Unverified Allergy, Unknown, HIGH BP, DIARRHEA, VOMITTING, PAIN, 07/21/16) metronidazole (Unverified Allergy, Unknown, HIGH BP, DIARRHEA, VOMITTING, PAIN, 07/21/16) PMhx/Soc History of Surgery: Yes (APPY) Anesthesia Reaction: No Hx Neurological Disorder: No Hx Respiratory Disorders: Yes (ASTHMA) Hx Cardiac Disorders: No Hx Psychiatric Problems: No Hx Miscellaneous Medical Probl: Yes (per notes h/o "brain cyst", VERTIGO ) Hx Alcohol Use: No Hx Substance Use: No Hx Tobacco Use: No Smoking Status: Never smoker FmHx Family History: No diabetes, No coronary disease, No other Physical Exam Vitals Vital Signs Date Temp Pulse Resp B/P (MAP) Pulse Ox O2 O2 Flow FiO2 Time Delivery Rate 04/26/18 97.5 84 18 130/85 99 06:26 (100) Physical Exam GENERAL: The patient is well-appearing, well-nourished, in no acute distress HEENT: Atraumatic. Conjunctivae are pink. Pupils equal, round, and reactive to light. There is no scleral icterus. Tympanic membranes clear bilaterally. Oropharynx clear. CHEST: Clear to auscultation bilaterally. There are no rales, wheezes or rhonchi. HEART: Regular rate and rhythm. No murmurs, clicks, rubs or gallops. EXTREMITIES: Equal pulses bilaterally. There is no peripheral clubbing, cyanosis or edema. NEUROLOGIC: Alert and oriented. Motor strength in all 4 extremities with 5 out of 5 strength. Sensation grossly intact. SKIN: Erythematous nodules noted to the hand. No vesicles or pustules. No open sores. Results 24 hrs Current Medications Medications Dose Sig/Carmen Start Time Status Last (Trade) Ordered Route PRN Stop Time Admin Dose Reason Admin Prednisone 60 mg ONCE ONCE 04/26/18 DC 04/26/18 (Prednisone) PO 07:30 04/26/18 07:22 07:31 Procedures/MDM ER course: Decadron given ED. MDM: 22-year-old female presenting with rash to palms of hands. Patient's rash appears to be viral or contact in nature. Patient is discharged with supportive medication. Patient is told symptoms change or worsen to return immediately to the ER. I have low suspicion for bacterial or parasitic infection. I have low suspicion for life-threatening rash. Patient is discharged stricter precautions. All questions answered at discharge Departure Diagnosis: Primary Impression: Rash Condition: Stable Patient Instructions: Self-Care for Skin Rashes Referrals: MONY SOMERS (PCP) Additional Instructions: FOLLOW UP WITH YOUR PRIMARY CARE PHYSICIAN TOMORROW.Return to this facility if you are not improving as expected. CHAY MUELLER PA-C Apr 26, 2018 15:54
== END 2018-04-26 08:09 | disposition home or self-care (01) ==
LOC: FTE 06:18
DX: R21 Rash and other nonspecific skin eruption (principal); J45.909 Unspecified asthma, uncomplicated
CPT/HCPCS: J7512; Z7502; 99283

== ENCOUNTER 2018-08-04 09:16 | Emergency (ER) | payer OTHER ==
[~2018-08-04] VITALS: Ht 152.4 cm; Wt 55.9 kg
[~2018-08-04 09:16] MED LIST changes: +HC30CR25 TOP; +PRED20TA PO
[2018-08-04 09:25] VITALS: BP 117/85; PULSE 80; RESP 18; Ht 152.4 cm; Wt 55.9 kg
--- NOTE | 2018-08-04 10:03 | ERD ---
ER Documentation Chief Complaint Chief Complaint CP and bilat arm numbness and anxiety x 2 days HPI 22-year-old otherwise healthy female is here with chest pain and left arm numbness that she states she is had for 2 days. She does admit to increased stress at work. She is also been hiking and doing more exercise recently. Pain is worse with movement or when the area is touched. She has not taken any medications for this. Denies any alcohol or drug use. ROS All systems reviewed and are negative except as per history of present illness. Medications Home Meds Active Scripts Ibuprofen* (Motrin*) 600 Mg Tab, 600 MG PO Q6, #30 TAB Prov:KENYON HERNANDEZ PA-C 08/04/18 Prednisone* (Prednisone*) 20 Mg Tab, 40 MG PO DAILY for 4 Days, #8 TAB Prov:CHAY MUELLER PA-C 04/26/18 Hydrocortisone* Topical (Hydrocortisone* Topical) 2.5%-28.3 Gm Cream..g., 1 APPLIC TOP BID, #1 TUB Prov:CHAY MUELLER PA-C 04/26/18 Cephalexin* (Keflex*) 500 Mg Capsule, 500 MG PO QID for 7 Days, CAP Prov:JOSE MARCANO MD 04/23/18 Sulfamethoxazole/Trimethoprim* (Bactrim Ds* Tablet) 1 Each Tablet, 1 TAB PO BID, #14 TAB Prov:JOSE MARCANO MD 04/23/18 Hydrocodone/Acetaminophen ([place] 5-325 Tablet) 1 Each Tablet, 1 TAB PO Q6H PRN for PAIN, #20 TAB Prov:JOSE MARCANO MD 04/23/18 Acetaminophen* (Tylenol*) 325 Mg Tablet, 2 TAB PO Q6 PRN for PAIN AND OR ELEVATED TEMP, #20 TAB Prov:CHAY MUELLER PA-C 05/29/17 Ibuprofen* (Motrin*) 600 Mg Tab, 600 MG PO Q6, #30 TAB Prov:NINOSKA CARRILLO PA-C 11/01/16 Meclizine Hcl* (Antivert*) 12.5 Mg Tab, 25 MG PO Q6H PRN for DIZZINESS, #20 TAB Prov:ESTEFANI JASON MD 07/21/16 Ibuprofen* (Motrin*) 600 Mg Tab, 600 MG PO Q6, #30 TAB Prov:GRISELDA GARZA Lara 06/24/16 Meclizine Hcl* (Meclizine Hcl*) 25 Mg Tablet, 12.5 MG PO TID for 30 Days, TAB 1/2 tab Prov:IJEOMA REYES 06/04/16 Albuterol Sulfate* (Ventolin HFA*) 18 Gm Hfa.aer.ad, 2 PUFF INH Q6HWA RESP THERAPY PRN for SHORTNESS OF BREATH, #1 3 Refills Prov:IJEOMA REYES 06/04/16 Allergies Allergies: Coded Allergies: Metronidazole HCl (Unverified Allergy, Unknown, HIGH BP, DIARRHEA, VOMITTING, PAIN, 07/21/16) ciprofloxacin (Unverified Allergy, Unknown, HIGH BP, DIARRHEA, VOMITTING, PAIN, 07/21/16) ciprofloxacin HCl (Unverified Allergy, Unknown, HIGH BP, DIARRHEA, VOMITTING, PAIN, 07/21/16) metronidazole (Unverified Allergy, Unknown, HIGH BP, DIARRHEA, VOMITTING, PAIN, 07/21/16) PMhx/Soc History of Surgery: Yes (APPY) Anesthesia Reaction: No Hx Neurological Disorder: No Hx Respiratory Disorders: Yes (ASTHMA) Hx Cardiac Disorders: No Hx Psychiatric Problems: No Hx Miscellaneous Medical Probl: Yes (per notes h/o "brain cyst", VERTIGO ) Hx Alcohol Use: No Hx Substance Use: No Hx Tobacco Use: No Smoking Status: Never smoker FmHx Family History: No diabetes Physical Exam Vitals Vital Signs Date Temp Pulse Resp B/P (MAP) Pulse Ox O2 O2 Flow FiO2 Time Delivery Rate 08/04/18 98.2 80 18 117/85 100 09:25 (96) Physical Exam INITIAL VITAL SIGNS: Reviewed by me GENERAL: Awake, alert and oriented x 4, well appearing, nontoxic, speaking in full sentences. No acute distress RESPIRATORY: Clear to auscultation bilaterally. Symmetric chest wall rise. No wheezing or rales. No accessory muscle use. CV: Regular rate and rhythm. No murmurs, rubs, or gallops. EXTREMITIES: No clubbing or cyanosis. No edema. Moving all extremities normally. Results 24 hrs Laboratory Tests Test 08/04/18 10:05 POC Beta HCG, Qualitative NEGATIVE Procedures/MDM The differential diagnosis includes but is not limited to acute coronary syndrome acute myocardial infarction, pericarditis, pulmonary embolism, aortic dissection, pneumonia, pleural effusion, pneumothorax, GERD, chest wall pain, and others. EKG and chest x-ray unremarkable. Patient counseled regarding my diagnostic impression and care plan. Prior to discharge all questions answered. Pt agrees with treatment plan and understands strict return precautions. Pt is instructed to follow up with primary care provider within 24-48 hours. Precautionary instructions provided including instructions to return to the ER if not improving or for any worsening or changing symptoms or concerns. Departure Diagnosis: Primary Impression: Chest pain Condition: Stable KENYON HERNANDEZ PA-C Aug 04, 2018 10:03
[2018-08-04] MEDS ORDERED: IBUP-1542 PO (10:39)
== END 2018-08-04 11:17 | disposition home or self-care (01) ==
LOC: FTE 09:16
DX: R07.9 Chest pain, unspecified (principal); J45.909 Unspecified asthma, uncomplicated
CPT/HCPCS: 71045; 81025; Z7502